=== PATIENT | female | born 1960 | race Caucasian/White ===

== ENCOUNTER 2017-10-10 12:31 | Emergency (ER) | payer BC ==
[~2017-10-10] VITALS: Ht 157.5 cm; Wt 104.3 kg
[~2017-10-10 12:31] MED LIST: ALLEGRA180 MG PO; ASPIRIN81 M1 PO; B COMPLEX WITH1 EACH; BENTYL10 MG PO; BYSTOLIC5 MG PO; CARAFATE1 GM PO; CENTRUM TABLET1 EACH PO; FISH OIL 1,4001 EACH; HYDROCHLOROTHIA25 MG; HYDROCHLOROTHIA25 MG PO; KEFLEX500 MG PO; LEVOTHYROXINE50 MCG PO; LEXAPRO10 MG PO; MVI; PANTOPRAZOLE SO40 MG PO; PROAIR HFA INH8.5 GM; REPREXAIN 5-201 EACH PO; REQUIP5 MG PO; ZANTAC 7575 MG PO; ZOCOR20 MG PO
[2017-10-10 13:41] LABS: BASOPHILS # (AUTO) 0.1 (0.0-0.1); BASOPHILS % 0.7 % (0.0-1.0); EOSINOPHILS # (AUTO) 0.2 (0.0-0.4); EOSINOPHILS % 1.8 % (0.0-6.0); HEMATOCRIT 40.2 % (34.2-44.1); HEMOGLOBIN 13.7 g/dL (12.0-16.0); LYMPHOCYTES # (AUTO) 4.8 (1.0-3.2); LYMPHOCYTES % 41.2 % (18.0-39.1); MEAN CORPUSCULAR HEMOGLOBIN 29.7 pg (28-32); MEAN CORPUSCULAR HGB CONC 34.1 g/dL (31-35); MEAN CORPUSCULAR VOLUME 87.2 fL (81-99); MONOCYTES # (AUTO) 0.7 (0.2-0.8); MONOCYTES % 6.1 % (4.4-11.3); NEUTROPHILS # (AUTO) 5.7 (2.1-6.9); NEUTROPHILS % 49.5 % (38.7-80.0); PLATELET COUNT 378 x10e3/uL (140-360); RED BLOOD COUNT 4.61 x10e6/uL (3.6-5.1); RED CELL DISTRIBUTION WIDTH 12.7 % (11.7-14.4)
[2017-10-10 13:53] LABS: ALANINE AMINOTRANSFERASE 26 IU/L (0-55); ALBUMIN 3.9 g/dL (3.5-5.0); ALBUMIN/GLOBULIN RATIO 0.9 (0.8-2.0); ALKALINE PHOSPHATASE 93 IU/L (40-150); AMYLASE 28 U/L (25-125); ANION GAP 13.2 mmol/L (8-16); BLOOD UREA NITROGEN 11 mg/dL (7-26); BUN/CREATININE RATIO 14 (6-25); CALCIUM 9.1 mg/dL (8.4-10.2); CARBON DIOXIDE 31 mmol/L (22-29); CHLORIDE 101 mmol/L (98-107); CREATININE, SERUM 0.79 mg/dL (0.57-1.11); EST GLOMERULAR FILTRATION RATE > 60 ML/MIN (60-); GLUCOSE 97 mg/dL (74-118); LIPASE 14 U/L (8-78); POTASSIUM 3.2 mmol/L (3.5-5.1); SODIUM 142 mmol/L (136-145)
[2017-10-10 15:44] LABS: BILIRUBIN,URINE NEGATIVE (NEGATIVE); CLARITY,URINE HAZY (CLEAR); COLOR,URINE YELLOW (YELLOW); KETONES,URINE NEGATIVE (NEGATIVE); LEUKOCYTE ESTERASE ,URINE 2+ (NEGATIVE); NITRITE,URINE NEGATIVE (NEGATIVE); PROTEIN,URINE DIPSTICK NEGATIVE (NEGATIVE); URINE UROBILINOGEN 0.2 mg/dL (0.2 - 1)
--- NOTE | 2017-10-10 16:05 | Diagnostic Imaging Report ---
PROCEDURE: CT ABDOMEN AND PELVIS WITH CONTRAST TECHNIQUE: The abdomen and pelvis were scanned utilizing a multidetector helical scanner from the diaphragm to the lesser trochanter after the IV administration of 100cc of Isovue 370 and the oral administration of water. Coronal and sagittal multiplanar reformations were obtained. COMPARISON: CT abdomen and pelvis 10/25/2012. INDICATIONS: ABD PAIN FINDINGS: LOWER THORAX: Normal. HEPATOBILIARY: Diffuse hepatic steatosis. No focal hepatic lesions. No biliary ductal dilatation. Right upper quadrant cholecystectomy clips. SPLEEN: No splenomegaly. PANCREAS: No focal masses or ductal dilatation. ADRENALS: No adrenal nodules. KIDNEYS/URETERS: No hydronephrosis, stones, or solid mass lesions. PELVIC ORGANS/BLADDER: 2.6 x 4.2 cm partially septated cystic structure the left ovary/adnexa (series 3 image 68) is decreased in size compared to 10/25/2012. This likely represents a left hydrosalpinx. Right ovary is unremarkable. PERITONEUM / RETROPERITONEUM: No free air or fluid. LYMPH NODES: No lymphadenopathy. VESSELS: Moderate atherosclerotic calcifications of the origins of the SMA and celiac axis. GI TRACT: No distention or wall thickening. Scattered colonic diverticula without evidence of diverticulitis. Duodenal diverticulum. Appendix is not visualized. BONES AND SOFT TISSUES: Unremarkable. IMPRESSION: 1. Diffuse hepatic steatosis. 2. No acute abnormalities identified in the abdomen or pelvis. Dictated by: Link Gunn M.D. on 10/10/2017 at 16:13 Electronically approved by: Link Gunn M.D. on 10/10/2017 at 16:13
[2017-10-10 16:40] LABS: EPITHELIAL CELLS,URINE FEW /LPF
[2017-10-10] MEDS ORDERED: KETOROLAC TROMETHAMINE 30 MG/ML VIAL IV STA (18:26)
[2017-10-10] MEDS ORDERED: DICYCLOMINE HCL 20 MG TAB PO ONE (18:30)
[2017-10-10] MEDS ORDERED: FENTANYL CITRATE/PF 100MCG/2 ML INJ IV ONE (18:30)
[2017-10-10] MEDS ORDERED: SODIUM CHLORIDE 0.9% 50ML 50 ML ONE (19:22)
[2017-10-10] MEDS ORDERED: IOPAMIDOL 370 MG/ML 200 ML INFUS..BTL INJ ONE (19:22)
[2017-10-10 20:24] VITALS: BP 145/68
== END 2017-10-10 20:25 | disposition home or self-care (01) ==
LOC: ER 12:31
DX: R10.33 Periumbilical pain (principal); N30.90 Cystitis, unspecified without hematuria; I10 Essential (primary) hypertension; K21.9 Gastro-esophageal reflux disease without esophagitis; Z87.19 Personal history of other diseases of the digestive system
CPT/HCPCS: 36415; 74177; 80053; 81001; 82150; 83690; 85025; 87086; 93005; 99284; J1885; Q9967

== ENCOUNTER 2017-11-29 16:10 | Emergency (ER) | payer BC ==
[~2017-11-29] VITALS: Ht 157.5 cm; Wt 111.1 kg
--- OUTSIDE RECORDS SUMMARY | 2017-11-29 16:14 | XMS REPORT ---
Author Author [facility] Address Unknown Phone Unavailable Care Team Providers [facility] [place] Guide Name Role Phone TOÑA CATALAN Unavailable Unavailable Problems This patient has no known problems. Allergies, Adverse Reactions, Alerts This patient has no known allergies or adverse reactions. Medications This patient has no known medications. Results Test Description Test Time Test Comments Text Results Atomic Results Result Comments CT ABDOMEN/PELVIS W [place] [address] Patient Name: ELLY LOCKWOOD MR #: [id number] : 1960 Age/Sex: 57/F Req #: [id number] Adm Physician: Ordered by: TOÑA CATALAN MD Report #: [id number] Location: ER Room/Bed: Procedure: [id number] CT/CT ABDOMEN/PELVIS W Exam Date: 10/10/17 Exam Time: 1450 REPORT STATUS: Signed PROCEDURE: CT ABDOMEN AND PELVIS WITH CONTRAST TECHNIQUE: The abdomen and pelvis were scanned utilizing a multidetector helical scanner from the diaphragm to the lesser trochanter after the IV administration of 100cc of Isovue 370 and the oral administration of water. Coronal and sagittal multiplanar reformations were obtained. COMPARISON: CT abdomen and pelvis 10/25/2012. INDICATIONS: ABD PAIN FINDINGS: LOWER THORAX: Normal. HEPATOBILIARY: Diffuse hepatic steatosis. No focal hepatic lesions. No biliary ductal dilatation. Right upper quadrant cholecystectomy clips. SPLEEN : No splenomegaly. PANCREAS: No focal masses or ductal dilatation. ADRENALS: No adrenal nodules. KIDNEYS/URETERS: No hydronephrosis, stones, or solid mass lesions. PELVIC ORGANS/BLADDER: 2.6 x 4.2 cm partially septated cystic structure the left ovary/adnexa (series 3 image 68) is decreased in size compared to 10/25/2012. This likely represents a left hydrosalpinx. Right ovary is unremarkable. PERITONEUM / RETROPERITONEUM: No free air or fluid. LYMPH NODES: No lymphadenopathy. VESSELS: Moderate atherosclerotic calcifications of the origins of the SMA and celiac axis. GI TRACT: No distention or wall thickening. Scattered colonic diverticula without evidence of diverticulitis. Duodenal diverticulum. Appendix is not visualized. BONES AND SOFT TISSUES: Unremarkable. IMPRESSION: 1. Diffuse hepatic steatosis. 2. No acute abnormalities identified in the abdomen or pelvis. Dictated by: Russel Gunn M.D. on 2017 at 16:13 Electronically approved by: Russel Gunn M.D. on 10/10/2017 at 16:13 Dictated By: RUSSEL GUNN MD [id number] Transcribed By: VIDYA on 10/10/17 1613 COPY TO: TOÑA CATALAN MD
[2017-11-29] MEDS ORDERED: ONDANSETRON HCL INJ 2 MG/ML VIAL IV STA (18:17)
[2017-11-29] MEDS ORDERED: SODIUM CHLORIDE 0.9% 1000ML 1,000 ML IV STA (18:17)
[2017-11-29] MEDS ORDERED: DIATRIZOATE MEGL/DIATRIZOA SOD 30 ML BTL PO ONE (18:27)
[2017-11-29 18:28] LABS: BASOPHILS # (AUTO) 0.1 (0.0-0.1); BASOPHILS % 0.6 % (0.0-1.0); EOSINOPHILS # (AUTO) 0.3 (0.0-0.4); EOSINOPHILS % 2.1 % (0.0-6.0); HEMATOCRIT 40.6 % (34.2-44.1); HEMOGLOBIN 13.7 g/dL (12.0-16.0); LYMPHOCYTES # (AUTO) 4.2 (1.0-3.2); LYMPHOCYTES % 33.8 % (18.0-39.1); MEAN CORPUSCULAR HEMOGLOBIN 29.8 pg (28-32); MEAN CORPUSCULAR HGB CONC 33.7 g/dL (31-35); MEAN CORPUSCULAR VOLUME 88.5 fL (81-99); MONOCYTES # (AUTO) 0.7 (0.2-0.8); MONOCYTES % 5.7 % (4.4-11.3); NEUTROPHILS # (AUTO) 7.1 (2.1-6.9); NEUTROPHILS % 57.2 % (38.7-80.0); PLATELET COUNT 266 x10e3/uL (140-360); RED BLOOD COUNT 4.59 x10e6/uL (3.6-5.1); RED CELL DISTRIBUTION WIDTH 12.8 % (11.7-14.4)
[2017-11-29 18:43] LABS: ALANINE AMINOTRANSFERASE 22 IU/L (0-55); ALBUMIN 3.9 g/dL (3.5-5.0); ALKALINE PHOSPHATASE 103 IU/L (40-150); AMYLASE 27 U/L (25-125); ANION GAP 17.3 mmol/L (8-16); BLOOD UREA NITROGEN 12 mg/dL (7-26); BUN/CREATININE RATIO 16 (6-25); CALCIUM 9.6 mg/dL (8.4-10.2); CARBON DIOXIDE 28 mmol/L (22-29); CHLORIDE 100 mmol/L (98-107); CREATININE, SERUM 0.77 mg/dL (0.57-1.11); EST GLOMERULAR FILTRATION RATE > 60 ML/MIN (60-); GLUCOSE 109 mg/dL (74-118); LIPASE 13 U/L (8-78); POTASSIUM 3.3 mmol/L (3.5-5.1); SODIUM 142 mmol/L (136-145)
--- NOTE | 2017-11-29 19:49 | Diagnostic Imaging Report ---
EXAM: CT Abdomen and Pelvis WITH contrast INDICATION: \S\Nausea/vomiting, concern for obstruction \[id number] \S\1900 COMPARISON: CT dated 10/10/2017 TECHNIQUE: Abdomen and pelvis were scanned utilizing a multidetector helical scanner from the lung base to the pubic symphysis after administration of IV contrast. Coronal and sagittal reformations were obtained. Routine protocol was performed. Scan was performed when during portal venous phase. IV CONTRAST: 100 mL of Isovue 370 ORAL CONTRAST: Gastroview COMPLICATIONS: None RADIATION DOSE: Total DLP: 845 mGy*cm Estimated effective dose: (DLP x 0.015 x size factor) mSv CTDIvol has been reviewed. It is below the limits set by the Radiation Protocol Committee (RPC). FINDINGS: LINES and TUBES: None. LOWER THORAX: Unremarkable HEPATOBILIARY: Hepatic steatosis. No focal hepatic lesions. No biliary ductal dilation. GALLBLADDER: Cholecystectomy. SPLEEN: No splenomegaly. PANCREAS: No focal masses or ductal dilatation. ADRENALS: No adrenal nodules KIDNEYS/URETERS: Kidneys enhance symmetrically. No hydronephrosis. No cystic or solid mass lesions. No stones. GI TRACT: No abnormal distention, wall thickening, or evidence of bowel obstruction. There are diverticula within the colon without evidence of diverticulitis. Appendix is not clearly visualized. PELVIC ORGANS/BLADDER: Unremarkable. 2 x 1 cm left para ovarian cyst (coronal image 68). LYMPH NODES: No lymphadenopathy. Increased number of subcentimeter right lower quadrant mesenteric lymph nodes. VESSELS: Unremarkable. PERITONEUM / RETROPERITONEUM: No free air or fluid. BONES: Unremarkable. SOFT TISSUES: Unremarkable. IMPRESSION: 1. No evidence of acute inflammatory process in the abdomen/pelvis. 2. Scattered colonic diverticula without evidence of diverticulitis. 3. Appendix is not clearly visualized. No signs of appendicitis in the right lower quadrant. Increased number of subcentimeter right lower quadrant mesenteric lymph nodes, could represent mild mesenteric adenitis in the appropriate clinical setting. 4. Hepatic steatosis. 5. No evidence of bowel obstruction. Signed by: Dr. Sreekatnh Camacho MD on 11/29/2017 7:46 PM
[2017-11-29 20:20] LABS: BILIRUBIN,URINE NEGATIVE (NEGATIVE); COLOR,URINE YELLOW (YELLOW); KETONES,URINE NEGATIVE (NEGATIVE); LEUKOCYTE ESTERASE ,URINE 1+ (NEGATIVE); NITRITE,URINE NEGATIVE (NEGATIVE); PROTEIN,URINE DIPSTICK NEGATIVE (NEGATIVE); URINE UROBILINOGEN 0.2 mg/dL (0.2 - 1)
[2017-11-29 20:21] LABS: CLARITY,URINE SL CLOUDY (CLEAR)
[2017-11-29 20:36] LABS: BACTERIA,URINE MANY /HPF; EPITHELIAL CELLS,URINE MODERATE /LPF; TRANSITIONAL EPI CELLS,URINE FEW
[2017-11-29] MEDS ORDERED: KETOROLAC TROMETHAMINE 30 MG/ML VIAL IV STA (21:38)
[2017-11-29] MEDS ORDERED: KETOROLAC TROMETHAMINE 30 MG/ML VIAL ONE (21:44)
[2017-11-29] MEDS ORDERED: SODIUM CHLORIDE 0.9% 1000ML 1,000 ML ONE (21:51)
[2017-11-29] MEDS ORDERED: SODIUM CHLORIDE 0.9% 50ML 50 ML ONE (22:09)
[2017-11-29] MEDS ORDERED: IOPAMIDOL 370 MG/ML 200 ML INFUS..BTL INJ ONE (22:10)
[2017-11-29 22:30] LABS: BILIRUBIN,URINE NEGATIVE (NEGATIVE); CLARITY,URINE CLEAR (CLEAR); COLOR,URINE YELLOW (YELLOW); KETONES,URINE NEGATIVE (NEGATIVE); LEUKOCYTE ESTERASE ,URINE NEGATIVE (NEGATIVE); NITRITE,URINE NEGATIVE (NEGATIVE); PROTEIN,URINE DIPSTICK NEGATIVE (NEGATIVE); URINE UROBILINOGEN 0.2 mg/dL (0.2 - 1)
[2017-11-29 22:43] LABS: BACTERIA,URINE MODERATE /HPF; EPITHELIAL CELLS,URINE RARE /LPF; WBC,URINE (MAN) 0-5 /HPF (0-5)
== END 2017-11-29 22:41 | disposition home or self-care (01) ==
LOC: ER 16:10
DX: N30.90 Cystitis, unspecified without hematuria (principal); I10 Essential (primary) hypertension; N83.292 Other ovarian cyst, left side
CPT/HCPCS: 36415; 74177; 80053; 81001; 82150; 83690; 85025; 87086; 99284; J1885; J7030; Q9967

== ENCOUNTER → 2018-10-25 | Day surgery (SDC) | payer BC ==
[2018-10-23 10:02] LABS: BASOPHILS # (AUTO) 0.1 (0.0-0.1); BASOPHILS % 0.7 % (0.0-1.0); EOSINOPHILS # (AUTO) 0.2 (0.0-0.4); EOSINOPHILS % 2.2 % (0.0-6.0); HEMATOCRIT 37.9 % (34.2-44.1); HEMOGLOBIN 12.2 g/dL (12.0-16.0); LYMPHOCYTES # (AUTO) 3.5 (1.0-3.2); LYMPHOCYTES % 37.4 % (18.0-39.1); MEAN CORPUSCULAR HEMOGLOBIN 29.3 pg (28-32); MEAN CORPUSCULAR HGB CONC 32.2 g/dL (31-35); MEAN CORPUSCULAR VOLUME 90.9 fL (81-99); MONOCYTES # (AUTO) 0.6 (0.2-0.8); MONOCYTES % 6.6 % (4.4-11.3); NEUTROPHILS % 52.8 % (38.7-80.0); PLATELET COUNT 306 x10e3/uL (140-360); RED BLOOD COUNT 4.17 x10e6/uL (3.6-5.1); RED CELL DISTRIBUTION WIDTH 12.8 % (11.7-14.4)
[2018-10-23 10:29] LABS: ANION GAP 14.3 mmol/L (8-16); BLOOD UREA NITROGEN 10 mg/dL (7-26); BUN/CREATININE RATIO 14 (6-25); CALCIUM 9.5 mg/dL (8.4-10.2); CARBON DIOXIDE 31 mmol/L (22-29); CHLORIDE 102 mmol/L (98-107); CREATININE, SERUM 0.73 mg/dL (0.57-1.11); EST GLOMERULAR FILTRATION RATE > 60 ML/MIN (60-); GLUCOSE 109 mg/dL (74-118); POTASSIUM 3.3 mmol/L (3.5-5.1); SODIUM 144 mmol/L (136-145)
[~2018-10-25] MED LIST changes: +BUPIVACAINE 0.25% 30ML SDV INJ ONE; +CEFAZOLIN SOD 2 GM/D5W 50ML 50 ML IV ONE; +CRESTOR10 MG; +DESFLURANE 240 ML BTL INH ONE; +DEXAMETHASONE SOD PHOS INJ 4 MG/ML VIAL ONE; +FENTANYL CITRATE/PF 100MCG/2 ML INJ ONE; +KETOROLAC TROMETHAMINE 30 MG/ML VIAL ONE; +LIDOCAINE HCL 2% LOCAL INJ 5 ML SDV VIAL INJ ONE; +LORAZEPAM1 MG PO; +MIDAZOLAM HCL 2 MG/2 ML VIAL ONE; +MORPHINE SULFATE INJ 4 MG/ML INJ 1ML ONE; +MULTIVITAMINS1 EAC7; +NEOSTIGMINE 1 MG/ML 10ML VIAL ONE; +ONDANSETRON HCL INJ 2MG/ML 2ML 2 MG/ML VIAL ONE; +PRO AIR INH; +PROBIOTIC & AC1 EACH; +PROPOFOL IV EMULSION 10 MG/ML 20 ML VIAL ONE; +[UNRECOGNIZED DRUG - OTHER]
--- OUTSIDE RECORDS SUMMARY | 2018-10-25 05:44 | XMS REPORT | Continuity of Care Document ---
Author Author [facility] Interface Address Unknown Phone Unavailable Problems Problem Status Onset Date Classification Date Reported Comments Source N95.0 - POSTMENOPAUSAL BLEEDING Active 05/24/2018 [facility] [place] POST MENAPUASAL BLEEDING, N95.0 Active 05/24/2018 [facility] Z12.31 - ENCNTR SCREEN MAMMOGRAM FOR MA Active 01/02/2017 [facility] [place] Final: Deformity of Orbit Due to Trauma or Surgery 12/04/2013 12/17/2013 [facility] [place] 627.1 - POSTMENOPAUSAL Active 07/23/2013 [facility] [place] Abdominal pain Active Problem 11/30/2017 [facility] UTI Active Problem 11/30/2017 [facility] Medications Medication Details Route Status Patient Instructions Ordering Provider Order Date Source Albuterol Sulfate (Proair Hfa Inhaler*) 8.5 Gm Inh, Active 01/12/2017 [facility] Escitalopram Oxalate (Lexapro) 10 Mg Tablet, 10 Mg Oral Daily Active 01/12/2017 [facility] Fa/Mv,Ca,Iron,Min/Lycopene/Lut (Centrum Tablet) 1 Each Tablet, 1 Tab Oral Daily Active 01/12/2017 [facility] Fexofenadine Hcl (Symone) 180 Mg Tablet, 180 Mg Oral Daily Active 01/12/2017 [facility] Hydrochlorothiazide 25 Mg Tablet, 25 Mg Oral Daily Active 01/12/2017 [facility] Hydrocodone/Ibuprofen (Reprexain 5-200 Mg Tablet) 1 Each Tablet, 1 Tab Oral Every 6 Hours as needed Active 01/12/2017 [facility] Zap-3/Dha/Epa/Fish Oil (Fish Oil 1,400 Mg Softgel) 1 Each Capsule., Active 01/12/2017 [facility] Simvastatin (Zocor) 20 Mg Tablet, 20 Mg Oral Daily Active 01/12/2017 [facility] Aspirin 81 Mg Tablet, 81 Mg Oral Daily Active 01/28/2013 [facility] Ranitidine Hcl (Zantac 75) 75 Mg Tablet, 300 Mg Oral Bedtime Active 01/28/2013 [facility] Sucralfate (Carafate) 1 Gm Tablet, 1 Gm Oral Four Times Daily Active 01/28/2013 [facility] Vitamin B Complex & Vit C No.3 (B Complex With Vitamin C) 1 Each Capsule, Active 01/28/2013 [facility] Cephalexin Monohydrate (Keflex) 500 Mg Capsule, 500 Mg Oral Three Times A Day Active 10/26/2012 [facility] Hydrochlorothiazide 25 Mg Tablet, 25 Mg Oral Daily Active 10/26/2012 [facility] Mvi , Active 10/26/2012 [facility] Dicyclomine Hcl (Bentyl) 10 Mg Capsule Four Times Daily Active [facility] Hydrochlorothiazide 25 Mg Tablet Daily Active [facility] Levothyroxine Sodium 50 Mcg Tablet Daily Active [facility] Nebivolol Hcl (Bystolic) 5 Mg Tablet Daily Active [facility] Pantoprazole Sodium (Protonix) 40 Mg Tablet.dr Daily Active [facility] Ropinirole Hcl (Requip) 5 Mg Tablet Daily Active [facility] Allergies, Adverse Reactions, Alerts Substance Category Reaction Severity Reaction type Status Date Reported Comments Source Sulfa (Sulfonamide Antibiotics) Mild Allergy to Substance Active 11/29/2017 [facility] Adhesive Unknown Allergy to Substance Active 11/29/2017 [facility] Hydromorphone Unknown Allergy to Substance Active 11/29/2017 [facility] Metoclopramide Mild Allergy to Substance Active 11/29/2017 [facility] Valacyclovir Unknown Allergy to Substance Active 11/29/[address] [facility] Immunizations Immunization Date Given Site Status Last Updated Comments Source Results Order Name Results Value Reference Range Date Interpretation Comments Source Breast Mammo Scrn ROSS incl CAD MA Breast Mammo Scrn ROSS incl CAD MA BILATERAL DIGITAL SCREENING MAMMOGRAM WITH CAD: 06/03/2018 CLINICAL: Routine/Screening. Current study was evaluated with a Computer Aided Detection (CAD) system. COMPARISON:Comparison is made to exams dated: 01/29/2017 mammogram, 05/17/2015 mammogram - [facility], 05/30/2013 mammogram, 04/26/2011 mammogram, 04/08/2010 mammogram, and 04/05/2009 mammogram - [facility] Out[facility] Imaging Department. TECHNIQUE: Mammographic views were obtained using digital acquisition. Current study was also evaluated with a Computer Aided Detection (CAD) system. FINDINGS: There are scattered fibroglandular densities in both breasts. There is a benign appearing intramammary node in the left breast. There also are benign appearing masses in the right breast. No significant masses, calcifications, or other findings are seen in either breast. There has been no significant interval change. IMPRESSION: BENIGN RECOMMENDATION:There is no mammographic evidence of malignancy. A 1 year screening mammogram is recommended.(06/04/2019) This exam was interpreted at [id number] for BLAKE Burnett 15. Professional services are provided by the [facility] of Diagnostic Imaging. Cullen Swanson M.D. cm/penrad:06/03/2018 08:43:18 [employer] Mechanic(s): RT Karli(R)(M), [facility] letter sent: BI-RADS 1/2 Mammogram BI-RADS: 2 Benign 06/03/2018 - - Read by: Brandt Gomez MD Dictated Date/time: 06/03/18 08:43 Electronically Signed by: Brandt Gomez MD 06/03/18 08:43 FINAL REPORT [facility] Pelvis w Pelvis Transvaginal US Pelvis w Pelvis Transvaginal US Exam: Pelvic ultrasound. Reason for Exam: N95.0 Postmenopausal bleeding - Comparison Exam: Pelvic ultrasound 07/24/2013 Discussion: Multiple axial and sagittal images of the pelvis were obtained transabdominally and transvaginally. The uterus measures 8.1 cm in length. It is of normal echogenicity without focal masses. The endometrial stripe measures 0.9 cm, and is within normal limits. The right ovary measures 2.3 x 1.5 x 1.2 cm. It is of normal echogenicity without focal masses. Doppler and waveform evaluations of the right ovary are unremarkable. Left ovary cannot be distinctly seen. Note is made of a cyst within the left adnexa measuring 2.3 x 1.7 x 0.6 cm. It is suggestive of a paraovarian cyst. No free fluid seen within the pelvic cul-de-sac. The bladder is unremarkable in appearance. Impression: 1. Endometrium and intrauterine cavity are unremarkable. 05/27/2018 - - Read by: Kingston Olsen MD Dictated Date/time: 05/27/18 15:40 Electronically Signed by: Kingston Olsen MD 05/27/18 15:49 FINAL REPORT [facility] [place] Specific gravity of Urine by Test strip Specific gravity of Urine by Test strip 1.015 1.010 - 1.025 11/29/2017 [facility] Urine clarity Urine clarity CLEAR CLEAR 11/29/2017 [facility] Urine color determination Urine color determination YELLOW YELLOW 11/29/2017 [facility] Urine erythrocytes detection Urine erythrocytes detection NEGATIVE NEGATIVE 11/29/2017 [facility] Urine glucose detection Urine glucose detection NEGATIVE NEGATIVE 11/29/2017 [facility] Urine ketones detection by automated test strip Urine ketones detection by automated test strip NEGATIVE NEGATIVE 11/29/2017 [facility] Urine leukocyte esterase detection by dipstick Urine leukocyte esterase detection by dipstick NEGATIVE NEGATIVE 11/29/2017 [facility] Urine nitrite detection Urine nitrite detection NEGATIVE NEGATIVE 11/29/2017 [facility] Urine pH measurement by automated test strip Urine pH measurement by automated test strip 5 5 - 7 11/29/2017 [facility] Urine protein measurement by test strip (mass/volume) Urine protein measurement by test strip (mass/volume) NEGATIVE NEGATIVE 11/29/2017 [facility] Urine total bilirubin measurement (mass/volume) Urine total bilirubin measurement (mass/volume) NEGATIVE NEGATIVE 11/29/2017 [facility] Urine urobilinogen measurement by test strip (mass/volume) Urine urobilinogen measurement by test strip (mass/volume) 0.2 0.2 - 1 11/29/2017 [facility] Automated blood basophil count (count/volume) Automated blood basophil count (count/volume) 0.1 0.0 - 0.1 11/29/2017 [facility] Automated blood basophil count as percentage of total leukocytes Automated blood basophil count as percentage of total leukocytes 0.6 0.0 - 1.0 11/29/2017 [facility] Automated blood eosinophil count Automated blood eosinophil count 0.3 0.0 - 0.4 11/29/2017 [facility] Automated blood eosinophil count as percentage of total leukocytes Automated blood eosinophil count as percentage of total leukocytes 2.1 0.0 - 6.0 11/29/2017 [facility] Automated blood hematocrit (volume fraction) Automated blood hematocrit (volume fraction) 40.6 34.2 - 44.1 11/29/2017 [facility] Automated blood lymphocyte count as percentage ot total leukocytes Automated blood lymphocyte count as percentage ot total leukocytes 33.8 18.0 - 39.1 11/29/2017 [facility] Automated blood monocyte count as percentage of total leukocytes Automated blood monocyte count as percentage of total leukocytes 5.7 4.4 - 11.3 11/29/2017 [facility] Automated blood neutrophil count Automated blood neutrophil count 7.1 2.1 - 6.9 11/29/2017 [facility] Automated blood platelet count (count/volume) Automated blood platelet count (count/volume) 266 140 - 360 11/29/2017 [facility] Automated blood segmented neutrophil count as percentage of total leukocytes Automated blood segmented neutrophil count as percentage of total leukocytes 57.2 38.7 - 80.0 11/29/2017 [facility] Automated erythrocyte mean corpuscular hemoglobin (mass per erythrocyte) Automated erythrocyte mean corpuscular hemoglobin (mass per erythrocyte) 29.8 28 - 32 11/29/2017 [facility] Automated erythrocyte mean corpuscular hemoglobin concentration measurement (mass/volume) Automated erythrocyte mean corpuscular hemoglobin concentration measurement (mass/volume) 33.7 31 - 35 11/29/2017 [facility] Automated erythrocyte mean corpuscular volume Automated erythrocyte mean corpuscular volume 88.5 81 - 99 11/29/2017 [facility] Blood erythrocytes automated count (number/volume) Blood erythrocytes automated count (number/volume) 4.59 3.6 - 5.1 11/29/2017 [facility] Blood hemoglobin measurement (moles/volume) Blood hemoglobin measurement (moles/volume) 13.7 12.0 - 16.0 11/29/2017 [facility] Blood leukocytes automated count (number/volume) Blood leukocytes automated count (number/volume) 12.35 4.8 - 10.8 11/29/2017 [facility] Blood lymphocytes count (number/volume) Blood lymphocytes count (number/volume) 4.2 1.0 - 3.2 11/29/2017 [facility] Blood monocytes automated count (number/volume) Blood monocytes automated count (number/volume) 0.7 0.2 - 0.8 11/29/2017 [facility] Estimated glomerular filtration rate (GFR) determination Estimated glomerular filtration rate (GFR) determination null 60 11/29/2017 [facility] Glucose measurement Glucose measurement 109 74 - 118 11/29/2017 [facility] Plasma globulin measurement (mass/volume) Plasma globulin measurement (mass/volume) 4.0 2.3 - 3.5 11/29/2017 [facility] Serum or plasma alanine aminotransferase measurement (enzymatic activity/volume) Serum or plasma alanine aminotransferase measurement (enzymatic activity/volume) 22 0 - 55 11/29/2017 [facility] Serum or plasma albumin measurement (mass/volume) Serum or plasma albumin measurement (mass/volume) 3.9 3.5 - 5.0 11/29/2017 [facility] Serum or plasma albumin/globulin mass ratio Serum or plasma albumin/globulin mass ratio 1.0 0.8 - 2.0 11/29/2017 [facility] Serum or plasma alkaline phosphatase measurement (enzymatic activity/volume) Serum or plasma alkaline phosphatase measurement (enzymatic activity/volume) 103 40 - 150 11/29/2017 [facility] Serum or plasma amylase measurement (enzymatic activity/volume) Serum or plasma amylase measurement (enzymatic activity/volume) 27 25 - 125 11/29/2017 [facility] Serum or plasma anion gap Serum or plasma anion gap 17.3 8 - 16 11/29/2017 [facility] Serum or plasma calcium measurement (mass/volume) Serum or plasma calcium measurement (mass/volume) 9.6 8.4 - 10.2 11/29/2017 [facility] Serum or plasma carbon dioxide, total measurement (moles/volume) Serum or plasma carbon dioxide, total measurement (moles/volume) 28 22 - 29 11/29/2017 [facility] Serum or plasma chloride measurement (moles/volume) Serum or plasma chloride measurement (moles/volume) 100 98 - 107 11/29/2017 [facility] Serum or plasma creatinine measurement (mass/volume) Serum or plasma creatinine measurement (mass/volume) 0.77 0.57 - 1.11 11/29/2017 [facility] Serum or plasma lipase measurement (enzymatic activity/volume) Serum or plasma lipase measurement (enzymatic activity/volume) 13 8 - 78 11/29/2017 [facility] Serum or plasma potassium measurement (moles/volume) Serum or plasma potassium measurement (moles/volume) 3.3 3.5 - 5.1 11/29/2017 [facility] Serum or plasma protein measurement (mass/volume) Serum or plasma protein measurement (mass/volume) 7.9 6.5 - 8.1 11/29/2017 [facility] Serum or plasma sodium measurement (moles/volume) Serum or plasma sodium measurement (moles/volume) 142 136 - 145 11/29/2017 [facility] Serum or plasma total bilirubin measurement (mass/volume) Serum or plasma total bilirubin measurement (mass/volume) 0.4 0.2 - 1.2 11/29/2017 [facility] Serum or plasma urea nitrogen measurement (mass/volume) Serum or plasma urea nitrogen measurement (mass/volume) 12 7 - 26 11/29/2017 [facility] Serum or plasma urea nitrogen/creatinine mass ratio Serum or plasma urea nitrogen/creatinine mass ratio 16 6 - 25 11/29/2017 [facility] Red Cell Distribution Width 12.8 11.7 - 14.4 11/29/2017 [facility] IM GRANULOCYTES % 0.6 0.0 - 1.0 11/29/2017 [facility] Absolute Immature Granulocyte (auto 0.07 0 - 0.1 11/29/2017 [facility] Aspartate Amino Transf (AST/SGOT) 23 5 - 34 11/29/2017 [facility] Automated urine sediment leukocyte count by microscopy (number/high power field) Automated urine sediment leukocyte count by microscopy (number/high power field) null 0 - 5 11/29/2017 [facility] Bacteria detection in urine sediment by light microscopy Bacteria detection in urine sediment by light microscopy MANY NONE 11/29/2017 [facility] Epithelial cells detection in urine sediment by light microscopy Epithelial cells detection in urine sediment by light microscopy MODERATE NONE 11/29/2017 [facility] Erythrocytes detection in urine sediment by light microscopy Erythrocytes detection in urine sediment by light microscopy NONE 0 - 5 11/29/2017 [facility] Transitional cells detection in urine sediment by light microscopy Transitional cells detection in urine sediment by light microscopy FEW NONE 11/29/2017 [facility] Breast Mammo Scrn ROSS incl CAD MA Breast Mammo Scrn ROSS incl CAD MA - BREAST MAMMO SCRN ROSS INCL CAD MA BILATERAL DIGITAL SCREENING MAMMOGRAM WITH CAD: 01/29/2017 CLINICAL: Routine. Current study was evaluated with a Computer Aided Detection (CAD) system. Comparison is made to exams dated: 05/17/2015 mammogram - [facility], 05/30/2013 mammogram, 04/26/2011 mammogram, 04/08/2010 mammogram, 04/05/2009 mammogram and 08/28/2007 mammogram - [facility] Outpatient Imaging Department. There are scattered fibroglandular densities in both breasts. There are benign appearing masses in the right breast. There also is a benign appearing intramammary node in the left breast. No significant masses, calcifications, or other findings are seen in either breast. There has been no significant interval change. IMPRESSION: BENIGN There is no mammographic evidence of malignancy. A 1 year screening mammogram is recommended. Professional services are provided by the [facility] Diagnostic Imaging. Pedro Luis Elder M.D. rsl/penrad:01/31/2017 08:54:47 [employer] Mechan[employer]: Stephanie Manzo RT(R)(M), [facility] This exam was dictated and interpreted by [id number] for BENOIT Bobby. letter sent: Bilateral Benign Mammogram BI-RADS: 2 Benign 01/29/2017 - - Read by: Pedro Luis Elder MD Dictated Date/time: 01/31/17 08:54 Electronically Signed by: Pedro Luis Elder MD 01/31/17 08:54 FINAL REPORT [facility] Digital Mammo Screening [place] Digital Mammo Screening [place] - DIGITAL MAMMO SCREENING ROSS MA BILATERAL DIGITAL SCREENING MAMMOGRAM WITH CAD: 05/17/2015 CLINICAL: Annual Screening. Current study was evaluated with a Computer Aided Detection (CAD) system. Comparison is made to exams dated: 04/05/2009 mammogram, 04/08/2010 mammogram, 04/26/2011 mammogram and 05/30/2013 mammogram - [facility] Outpatient Imaging Department. There are scattered fibroglandular densities in both breasts. There is a benign mass in the right breast. There also is a benign intramammary node in the left breast. No significant masses, calcifications, or other findings are seen in either breast. There has been no significant interval change. IMPRESSION: BENIGN There is no mammographic evidence of malignancy. A 1 year screening mammogram is recommended. Nico Ring M.D. [facility]/penrad:05/17/2015 16:35:40 [employer]: Sherley Ferraro RT(R)(M), [facility] This exam was dictated and interpreted by [id number] for BENOIT Thomas. letter sent: Normal exam Mammogram BI-RADS: 2 Benign 05/17/2015 - - Read by: Nico Ring MD Dictated Date/time: 05/17/15 16:35 Electronically Signed by: Nico Ring MD 05/17/15 16:35 FINAL REPORT [facility] Orbit wo contrast CT Orbit wo contrast CT CT orbits without contrast 11/28/2013 Clinical: Trauma. Comparison: None available. Findings: The DLP is 694 mGy - cm. Axial and direct coronal CT images were obtained without intravenous contrast. Linear nondisplaced fracture of the right orbital roof is present. Right lamina papyracea medially displaced fracture is present, with partial encroachment of the left medial rectus muscle into the fracture defect. There is asymmetrical prominence of the left medial rectus muscle which may represent posttraumatic myositis. Focal anterior right orbital floor fracture is present, without entrapment of the right inferior extraocular muscle. The right maxillary sinus is well aerated. No additional fracture is seen. The bilateral optic globes appear unremarkable. No intraconal hematoma or soft tissue mass is seen. There is a small radiopaque foreign body within the right superior periorbital soft tissues. IMPRESSION: 1. Fractures involving the right orbital roof, right lamina papyracea, and right orbital floor as above. There is encroachment of the left medial rectus muscle into the fracture defect with probable posttraumatic myositis. 2. Small radiopaque foreign body within the right superior periorbital soft tissues. 11/28/2013 - - Read by: Ernst Joe Dictated Date/time: 11/28/13 16:50 Electronically Signed by: Ernst Joe MD 11/28/13 17:19 FINAL REPORT [facility] Pelvis with Pelvis Transvaginal US Pelvis with Pelvis Transvaginal US EXAM: Pelvis with Pelvis Transvaginal US HISTORY: PMB COMPARISON: 04/05/2009. TECHNIQUE: Grayscale, color Doppler and limited spectral Doppler imaging of the uterus and ovaries was obtained. FINDINGS: Uterus measures 8.7 x 5.9 by 5. centimeters and again demonstrates a retroverted appearance with heterogeneous myometrium. The endometrial stripe is thickened for a postmenopausal woman measuring 1.4 cm. The right ovary measures 2.4 x 1.2 x 1.7 cm and contains a small slightly complex cyst measuring less than a 1.0 x 0.6 x 0.7 cm. The left ovary measures 4.0 x 2.7 x 2.4 cm and contains a complex cystic area measuring 2.4 x 2.0 x 2.0 cm. There is a left paraovarian cyst which appears simple in appearance and has been seen on prior exams measuring approximately 2.7 x 2.2 x 2.5 cm, stable. There is no free fluid. IMPRESSION: 1. Thickened endometrial stripe in a postmenopausal woman with bleeding should be evaluated further with biopsy. 2. Complex left ovarian cyst. Short-term followup is recommended. 07/24/2013 - - Read by: Brandie Vila Dictated Date/time: 07/25/13 08:00 Electronically Signed by: Brandie Vila MD 07/25/13 08:18 FINAL REPORT [facility] [place] Vital Signs Vital Sign Value Date Comments Source Encounters Location Location Details Encounter Type Encounter Number Reason For Visit Attending Provider ADM Date DC Date Status Source OD [id number] 627.1 - POSTMENOPAUSAL DAMIRDANICA SUZ 07/24/2013 Active [facility] [place] [facility] [place] [facility] [id number] _[id number] Dain [place]vale 11/28/2013 11/29/2013 [facility] [place] [facility] [place] [facility] [id number] Damir Hanson 05/17/2015 05/18/2015 [facility] [place] [facility] [place] [facility] [id number] Damir Hanson 01/29/2017 01/30/2017 [facility] [place] Departed Emergency Room [id number] TOÑA CATALAN MD 10/10/2017 10/10/2017 [facility] Departed Emergency Room [id number] DAYA ALEJO MD 11/29/2017 11/29/2017 [facility] Procedures Procedure Code Date Perfomer Comments Source Computed tomography of abdomen and pelvis with contrast [id number] 11/29/[address] [facility] Computed tomography of abdomen and pelvis with contrast [id number] 10/10/[address] [facility]
--- OUTSIDE RECORDS SUMMARY | 2018-10-25 05:44 | XMS REPORT | Summary of Care ---
Author Author [facility] Outpatient Imaging - [place] Organization [facility] Outpatient Imaging [facility] Address Unknown Phone Unavailable Care Team Providers Care Mortar Carrier Name Role Phone Vahid Hanson PCP Encounter HQ Encntr_alichilango([facility]) [phone] Date(s): 05/17/15 - 05/17/15 [facility] Outpatient [address] [address] [phone] Discharge Disposition: Home Attending Physician: Vahid Hanson MD Vital Signs No data available for this section Problem List No data available for this section Allergies, Adverse Reactions, Alerts No data available for this section Medications No data available for this section Results No data available for this section Immunizations No data available for this section Procedures No data available for this section Social History No data available for this section Assessment and Plan No data available for this section
--- OUTSIDE RECORDS SUMMARY | 2018-10-25 05:44 | XMS REPORT | Summary of Care ---
Author Organization Unknown Address Unknown Phone Unavailable Care Team Providers Care Hotel Server Name Role Phone Vahid Hanson PCP Encounter Dates Location Diagnoses Discharge Providers Disposition 11/28/2013 [facility] Outpatient Imaging - Final: Home Dain Siddiqui NS - Uriah Deformity of 11/28/[address] [place] Due to [place], [place] [address]- , Trauma or [place] [facility] Reason for Visit 376.47 - ORBIT DEFORM D/ Problem List No data available for this section Allergies, Adverse Reactions, Alerts No data available for this section Medications No data available for this section Medications Administered During Your Visit No data available for this section Immunizations No data available for this section
--- OUTSIDE RECORDS SUMMARY | 2018-10-25 05:44 | XMS REPORT | Summary of Care ---
Author Author [facility] Outpatient Imaging - [place] Organization [facility] Outpatient [facility] - [place] Address Unknown Phone Unavailable Encounter HQ Amandar_franco([facility]) [id number] Date(s): 01/29/17 - 01/29/17 [facility] Outpatient Imaging - [place] [address] [place] [phone] Discharge Disposition: Home or Self Care Attending Physician: Vahid Hanson MD Vital Signs [...]
[2018-10-25 10:05] VITALS: BP 121/67
--- NOTE | 2018-10-27 22:41 | Operative Report ---
DATE OF PROCEDURE: PREOPERATIVE DIAGNOSES: 1. Soft tissue mass, left foot interdigital. 2. Hammertoe with bone spurs, second and third digits, left foot. POSTOPERATIVE DIAGNOSES: 1. Soft tissue mass, left foot interdigital. 2. Hammertoe with bone spurs, second and third digits, left foot. TITLE OF THE OPERATIONS: 1. Excision of soft tissue mass, left foot. 2. Arthroplasty with exostectomy, second and third digits, left foot. Human tissue allograft was applied as well. PROCEDURE IN DETAIL: The patient was taken to the operating room in a mildly sedated state and placed upon the operating room table in supine position. Following induction of general anesthetic, the left lower extremity was elevated to 60 degrees to exsanguinate before inflating the pneumatic thigh tourniquet to 350 mmHg to good hemostasis. Left lower extremity was placed upon the operating room table prior to performing the following procedures: PROCEDURE #1: Excision of the soft tissue mass of the left foot. An approximate 2.5-cm lesion was noted interdigitally between the second and third digits extending dorsalward on the left foot. The incision was circumscribed and excised full thickness through skin, subcutaneous tissue, and deep tissues all on the left foot. The area was irrigated. Deep tissues were electrocauterized. Human tissue allograft was applied to the area and closure with a combination of 3-0 Vicryl, 4-0 nylon. Attention was then directed to the dorsal aspect of the foot for the arthroplasty, second and third digits with exostectomies of the left foot. A linear longitudinal incision was made across the dorsolateral aspect of the second digit and dorsomedial aspect of the third digit. This incision was deepened via sharp and blunt dissection down to the level of the capsular structure. The capsule was entered and exostosis resected utilizing oscillating saw and power rasp. With this having been accomplished, the area was irrigated with copious amounts of sterile saline solution. Deep closure was 3-0 Vicryl and skin closure 4-0 nylon, each a separate incision. These areas were all then blocked with 0.5 Marcaine, Decadron LA. Release of the pneumatic thigh tourniquet showed a normal hyperemic flush to all digits of the left foot. Patient tolerated the procedure and anesthesia very well. Job#: [id number]
== END | disposition home or self-care (01) ==
LOC: OR 05:41
PROVIDERS: ATTEND Podiatrist Foot Surgery
DX: D36.7 Benign neoplasm of other specified sites (principal); M20.42 Other hammer toe(s) (acquired), left foot; G47.33 Obstructive sleep apnea (adult) (pediatric); J45.909 Unspecified asthma, uncomplicated; I10 Essential (primary) hypertension; K21.9 Gastro-esophageal reflux disease without esophagitis; K58.9 Irritable bowel syndrome, unspecified; Z88.2 Allergy status to sulfonamides; Z88.8 Allergy status to other drugs, medicaments and biological substances; Z88.6 Allergy status to analgesic agent; Z01.810 Encounter for preprocedural cardiovascular examination; Z01.812 Encounter for preprocedural laboratory examination
CPT/HCPCS: 28041; 28285 ×2; 36415 ×2; 80048; 84132; 85025; 88305; 93005; C1713; J0690; J1100; J1885; J2001; J2250; J2270; J2405; J2704; J2710; Q4100; 88304

== ENCOUNTER → 2019-03-20 | Day surgery (SDC) | payer BC ==
[2019-03-17 17:19] LABS: ANION GAP 6.3 mmol/L (8-16); BLOOD UREA NITROGEN 9 mg/dL (7-26); BUN/CREATININE RATIO 13 (6-25); CALCIUM 9.5 mg/dL (8.4-10.2); CARBON DIOXIDE 36 mmol/L (22-29); CHLORIDE 102 mmol/L (98-107); EST GLOMERULAR FILTRATION RATE > 60 ML/MIN (60-); GLUCOSE 86 mg/dL (74-118); POTASSIUM 3.3 mmol/L (3.5-5.1); SODIUM 141 mmol/L (136-145)
[~2019-03-20] MED LIST changes: -BUPIVACAINE 0.25% 30ML SDV INJ ONE; +BUPIVACAINE HCL 0.5% INJ 30 ML VIAL INJ ONE; +CEFAZOLIN SOD 1 GM/NS 50ML 50 ML IV ONE; -CEFAZOLIN SOD 2 GM/D5W 50ML 50 ML IV ONE; -DESFLURANE 240 ML BTL INH ONE; +GLYCOPYRROLATE INJ 1MG/ 5 ML SYR ONE; +LEXAPRO20 MG PO; +MUPIROCIN 2% OINT 22 GM TUBE ONE; -NEOSTIGMINE 1 MG/ML 10ML VIAL ONE; +SEVOFLURANE INHAL SOLN 250 ML PEN BTL ONE
--- OUTSIDE RECORDS SUMMARY | 2019-03-20 05:52 | XMS REPORT | Summary of Care ---
Author Author [facility] Organization [facility] Address Unknown Phone Unavailable Encounter CLARISSA Arenas(MIHAELA) [phone] Date(s): 06/26/18 - 06/26/18 [facility] [address] [address]- [phone] Encounter Diagnosis Postmenopausal bleeding (Final) - 09/05/18 Essential (primary) hypertension (Final) - Gastro-esophageal reflux disease without esophagitis (Final) - Obstructive sleep apnea (adult) (pediatric) (Final) - Unspecified asthma, uncomplicated (Final) - Pure hypercholesterolemia, unspecified (Final) - Hyperlipidemia, unspecified (Final) - Major depressive disorder, single episode, unspecified (Final) - Anxiety disorder, unspecified (Final) - Obesity, unspecified (Final) - Body mass index (BMI) 40.0-44.9, adult (Final) - Discharge Disposition: Home or Self Care Attending Physician: Vahid Hanson MD Referring Physician: Vahid Hanson MD Vital Signs 1 2 3 Most recent to oldest [Reference Range]: 157.48 cm (06/26/18 7:06 AM) 157.48 cm (06/17/18 1:11 PM) Height 137/94 mmHg (06/26/18 11:11 AM) 140/71 mmHg (06/26/18 10:45 AM) 146/66 mmHg *HI* (06/26/18 10:30 AM) Blood Pressure [90-140/60-90 mmHg] 14 BRMIN (06/26/18 11:11 AM) 12 BRMIN *LOW* (06/26/18 10:45 AM) 16 BRMIN (06/26/18 10:30 AM) Respiratory Rate [14-20 BRMIN] 66 bpm (06/26/18 6:58 AM) 61 bpm (06/17/18 1:11 PM) Peripheral Pulse Rate [60-100 bpm] 109.091 kg (06/26/18 7:06 AM) 109.545 kg (06/17/18 1:11 PM) Weight 43.99 m2 (06/26/18 7:06 AM) 44.17 m2 (06/17/18 1:11 PM) Body Mass Index Problem List No data available for this section Allergies, Adverse Reactions, Alerts Substance Reaction Severity Status sulfa drugs Active Dilaudid Active Reglan Active Adhesive Active valACYclovir Active Medications acetaminophen (ANES) 10 mg Route: IV, Drug form: INJ, Start date: 06/26/18 7:53:00 CDT, Stop date: 06/26/18 8:53:00 CDT Start Date: 06/26/18 Stop Date: 06/26/18 Status: Completed ANES flumazenil 0.2 mg, 2 mL, Route: IVP, Drug form: INJ, PRN, Dosing Weight 109.091, kg, PRN Be nzodiazepine Reversal, Initial dose, Start date: 06/26/18 8:48:00 CDT, Duration: 30 day, Stop date: 07/26/18 8:47:00 CDT Notes: (Same as: Romazicon) Start Date: 06/26/18 Stop Date: 06/27/18 Status: Discontinued ANES ketOROLAC 30 mg, Route: IVP, ONCE, Dosing Weight 109.091, kg, Start date: 06/26/18 8:48:00 CDT, Stop date: 06/26/18 8:48:00 CDT Start Date: 06/26/18 Stop Date: 06/26/18 Status: Completed ANES naloxone 0.4 mg, 1 mL, Route: IVP, Drug form: INJ, Q2MIN, Dosing Weight 109.091, kg, PRN Narcotic Reversal, Start date: 06/26/18 8:48:00 CDT, Duration: 8 doses or times, Stop date: 06/27/18 0:00:00 CDT Notes: Same as Narcan Start Date: 06/26/18 Stop Date: 06/27/18 Status: Completed ANES ondansetron 4 mg, 2 mL, Route: IVP, Drug form: INJ, ONCE, Dosing Weight 109.091, kg, PRN Vasile sea & Vomiting, Start date: 06/26/18 8:48:00 CDT Notes: (Same as: Zofran) MEDICATION WASTE Product Size: 4 mgProduct Was caterina: ___ mg Start Date: 06/26/18 Stop Date: 06/27/18 Status: Discontinued ANES oxyCODONE 10 mg, 2 tab, Route: PO, Drug form: TAB, Q4H, Dosing Weight 109.091, kg, PRN Joie n Score 7-10, Start date: 06/26/18 8:48:00 CDT, Duration: 30 day, Stop date: 8:47:00 CDT Notes: (Same as: Roxicodone) Start Date: 06/26/18 Stop Date: 06/27/18 Status: Discontinued ANES oxyCODONE 5 mg, 1 tab, Route: PO, Drug form: TAB, Q4H, Dosing Weight 109.091, kg, PRN Pain Score 4-6, Start date: 06/26/18 8:48:00 CDT, Duration: 30 day, Stop date: 07/26 8:47:00 CDT Notes: (Same as: Roxicodone) Start Date: 06/26/18 Stop Date: 06/27/18 Status: Discontinued ANES promethazine 6.25 mg, 0.25 mL, Route: IVPB, Drug form: INJ, ONCE, Dosing Weight 109.091, kg, PRN Nausea & Vomiting, Start date: 06/26/18 8:48:00 CDT Notes: Do not give IV push. (Same as: Phenergan) Start Date: 06/26/18 Stop Date: 06/27/18 Status: Discontinued ANES scopolamine 1.5 mg transdermal film 1 patch, Route: TOP, Drug Form: ERFILM, Dosing Weight 109.091, kg, ONCE, Apply b ehind ear. Avoid use in elderly., Start date: 06/26/18 8:48:00 CDT, Stop date: 06/26/18 8:48:00 CDT Notes: Change patch every 72 hours (Same as: Transderm-Scop) Start Date: 06/26/18 Stop Date: 07/07/18 Status: Discontinued Bystolic 10 mg oral tablet 10 mg=1 tab, PO, Daily, # 30 tab, 0 Refill(s) Start Date: 06/17/18 Status: Ordered Crestor 10 mg oral tablet 10 mg=1 tab, PO, Bedtime, # 30 tab, 0 Refill(s) Start Date: 06/17/18 Status: Ordered dexamethasone (ANES) Route: IV, Drug form: INJ, ONCE, Stop date: 06/26/18 8:29:00 CDT Start Date: 06/26/18 Stop Date: 06/26/18 Status: Completed fentaNYL (ANES) Route: IV, Drug form: INJ, ONCE, Stop date: 06/26/18 8:34:00 CDT Start Date: 06/26/18 Stop Date: 06/26/18 Status: Completed hydrALAZINE 10 mg, 0.5 mL, Route: IV, Drug form: INJ, Q20Min, Dosing Weight 109.091, kg, Sta rt date: 06/26/18 9:20:00 CDT, Duration: 2 doses or times, Stop date: 06/26/18 9 :40:00 CDT Notes: (Same as: Apresoline)Push over 5 minutes Start Date: 06/26/18 Stop Date: 06/26/18 Status: Completed hydrochlorothiazide 25 mg oral tablet 25 mg=1 tab, PO, Daily, # 30 tab, 0 Refill(s) Start Date: 06/17/18 Status: Ordered ibuprofen 600 mg oral tablet 600 mg=1 tab, PO, Q8H, # 30 tab, 0 Refill(s), Pharmacy: [facility] Start Date: 06/26/18 Stop Date: 07/06/18 Status: Completed Lactated Ringers Injection IV (ANES) 1000 mL Route: IV, Total Volume: 1,000, Start date: 06/26/18 7:31:00 CDT, Stop date: 8:31:00 CDT Start Date: 06/26/18 Stop Date: 06/26/18 Status: Completed lidocaine (ANES) Route: IV, Drug form: INJ, ONCE, Stop date: 06/26/18 8:34:00 CDT Start Date: 06/26/18 Stop Date: 06/26/18 Status: Completed midazolam (ANES) Route: IV, Drug form: SOLN, ONCE, Stop date: 06/26/18 8:34:00 CDT Start Date: 06/26/18 Stop Date: 06/26/18 Status: Completed morphine Sulfate 2 mg, 0.5 mL, Route: IV, Drug form: INJ, Q10Min, Dosing Weight 109.091, kg, PRN Pain Score 6-10, Start date: 06/26/18 9:35:00 CDT, Duration: 5 doses or times, S top date: 06/27/18 0:00:00 CDT Notes: (Same as:MORPhine Sulfate) Start Date: 06/26/18 Stop Date: 06/27/18 Status: Completed Multiple Vitamins oral capsule 1 cap, PO, Daily, # 30 cap, 0 Refill(s) Start Date: 06/17/18 Status: Ordered Broad[place]-3 1000 mg oral capsule 1,000 mg=1 cap, PO, TID, 0 Refill(s) Start Date: 06/17/18 Status: Ordered ondansetron (ANES) Route: IV, Drug form: INJ, ONCE, Stop date: 06/26/18 8:38:00 CDT Start Date: 06/26/18 Stop Date: 06/26/18 Status: Completed propofol (ANES) Route: IV, Drug form: INJ, ONCE, Stop date: 06/26/18 8:34:00 CDT Start Date: 06/26/18 Stop Date: 06/26/18 Status: Completed Protonix 40 mg oral enteric coated tablet 40 mg=1 tab, PO, Daily, # 30 tab, 0 Refill(s) Start Date: 06/17/18 Status: Ordered succinylcholine (ANES) Route: IV, Drug form: INJ, ONCE, Stop date: 06/26/18 8:34:00 CDT Start Date: 06/26/18 Stop Date: 06/26/18 Status: Completed tramadol 50 mg, 1 tab, Route: PO, Drug form: TAB, Q4H, Dosing Weight 109.091, kg, PRN Joie n Score 1-5, Start date: 06/26/18 8:52:00 CDT, Duration: 1 day, Stop date: 06/27 8:51:00 CDT Notes: Not to exceed 400mg/day. (Same As: Ultram) Start Date: 06/26/18 Stop Date: 06/27/18 Status: Discontinued tramadol 100 mg, Route: PO, Drug form: TAB, Q4H, Dosing Weight 109.091, kg, PRN Pain Scor e 6-10, Start date: 06/26/18 8:52:00 CDT, Duration: 1 day, Stop date: 06/27/18 8 :51:00 CDT Start Date: 06/26/18 Stop Date: 06/27/18 Status: Discontinued Results ELECTROLYTES Most recent to 1 oldest [Reference Range]: Sodium Lvl [135-145 145 mEq/L mEq/L] (06/17/18 10:45 AM) Potassium Lvl 4.0 mEq/L [3.5-5.1 mEq/L] (06/17/18 10:45 AM) Chloride Lvl [95-109 102 mEq/L mEq/L] (06/17/18 10:45 AM) CO2 [24-32 mEq/L] 34 mEq/L *HI* (06/17/18 10:45 AM) AGAP [10.0-20.0 13.0 mEq/L mEq/L] (06/17/18 10:45 AM) CHEM PANEL Most recent to 1 oldest [Reference Range]: Creatinine Lvl 0.78 mg/dL [0.50-1.40 mg/dL] (06/17/18 10:45 AM) eGFR 86 mL/min/1.73m2 1 *NA* (06/17/18 10:45 AM) BUN [7-22 mg/dL] 20 mg/dL (06/17/18 10:45 AM) Glucose Lvl [70-99 80 mg/dL mg/dL] (06/17/18 10:45 AM) Calcium Lvl 9.7 mg/dL [8.5-10.5 mg/dL] (06/17/18 10:45 AM) 1Result Comment: The eGFR is calculated using the CKD-EPI formula. In most young, healthy individuals the eGFR will be >90 mL/min/1.73m2. The eGFR declines with age. An eGFR of 60-89 may be normal in some populations, particularly the elderly, for whom the CKD-EPI formula has not been extensively validated. Use of the eGFR is not recommended in the following populations: Individuals with unstable creatinine concentrations, including patients and those with serious co-morbid conditions. Patients with extremes in muscle mass or diet. The data above are obtained from the National Kidney Disease Education Program ( NKDEP) which additionally recommends that when the eGFR is used in patients with extremes of body mass index for purposes of drug dosing, the eGFR should be mul tiplied by the estimated BMI. URINE AND STOOL Most recent to 1 oldest [Reference Range]: UA Turbidity [Clear] Clear (06/17/18 10:45 AM) UA Color [Yellow] Yellow *NA* (06/17/18 10:45 AM) UA pH [5.0-8.0] 5.5 (06/17/18 10:45 AM) UA Spec Grav 1.016 [<=1.030] (06/17/18 10:45 AM) UA Glucose [Negative Negative mg/dL mg/dL] *NA* (06/17/18 10:45 AM) UA Blood [Negative] Negative (06/17/18 10:45 AM) UA Ketones [Negative Negative mg/dL mg/dL] *NA* (06/17/18 10:45 AM) UA Protein [Negative Negative mg/dL mg/dL] (06/17/18 10:45 AM) UA Urobilinogen <=1.0 mg/dL [0.1-1.0 mg/dL] *NA* (06/17/18 10:45 AM) UA Bili [Negative] Negative *NA* (06/17/18 10:45 AM) UA Leuk Est Moderate [Negative] *ABN* (06/17/18 10:45 AM) UA Nitrite Negative [Negative] (06/17/18 10:45 AM) UA WBC [0-5 /HPF] 21 /HPF *HI* (06/17/18 10:45 AM) UA Sq Epi [Few /LPF] Few /LPF *NA* (06/17/18 10:45 AM) UA Mucus [None Seen Few /LPF /LPF] *NA* (06/17/18 10:45 AM) Micro? Performed *NA* (06/17/18 10:45 AM) HEMATOLOGY Most recent to 1 oldest [Reference Range]: WBC [3.7-10.4 K/CMM] 18.0 K/CMM *HI* (06/17/18 10:45 AM) RBC [4.20-5.40 4.88 M/CMM M/CMM] (06/17/18 10:45 AM) Hgb [12.0-16.0 g/dL] 14.4 g/dL (06/17/18 10:45 AM) Hct [36.0-48.0 %] 43.6 % (06/17/18 10:45 AM) MCV [80.0-98.0 fL] 89.4 fL (06/17/18 10:45 AM) MCH [27.0-31.0 pg] 29.5 pg (06/17/18 10:45 AM) MCHC [32.0-36.0 33.0 g/dL g/dL] (06/17/18 10:45 AM) RDW [11.5-14.5 %] 13.7 % (06/17/18 10:45 AM) MPV [7.4-10.4 fL] 9.0 fL (06/17/18 10:45 AM) Platelet [133-450 341 K/CMM K/CMM] (06/17/18 10:45 AM) Segs [45.0-75.0 %] 66.2 % (06/17/18 10:45 AM) Lymphocytes 26.9 % [20.0-40.0 %] (06/17/18 10:45 AM) Monocytes [2.0-12.0 6.3 % %] (06/17/18 10:45 AM) Eosinophils [0.0-4.0 0.4 % %] (06/17/18 10:45 AM) Basophils [0.0-1.0 0.2 % %] (06/17/18 10:45 AM) Neutrophils # 11.9 K/CMM [1.5-8.1 K/CMM] *HI* (06/17/18 10:45 AM) Lymphocytes # 4.8 K/CMM [1.0-5.5 K/CMM] (06/17/18 10:45 AM) Monocytes # [0.0-0.8 1.1 K/CMM K/CMM] *HI* (06/17/18 10:45 AM) Eosinophils # 0.1 K/CMM [0.0-0.5 K/CMM] (06/17/18 10:45 AM) Microbiology Reports TEST: Culture: Urine STATUS: Auth (Verified) BODY SITE: SOURCE: Urine, Clean Catch COLLECTED DATE/TIME: 06/17/18 10:45 AM FINAL REPORT 10,000 - 50,000 CFU/mL Klebsiella pneumoniae ssp pneumoniae <10,000 CFU/mL Gram Negative Rods #2 <10,000 CFU/mL Skin Lili ORGANISM:Klebsiella pneumoniae ssp pneumoniae Immunizations No data available for this section Procedures Procedure Date Related Diagnosis Body Site Status Appendectomy Completed Carpal tunnel release1 Completed Gallbladder excision Completed Hernia repair2 Completed Knee arthroplasty3 Completed Shoulder repair Completed Tonsillectomy Completed 1Balat 2twice 32 times left leg Social History Social History Type Response Smoking Status Never smoker; Exposure to Tobacco Smoke None; Cigarette Smoking Last 365 Days No; Reg Smoking Cessation Counseling No entered on: 06/26/18 Assessment and Plan Extracted from: Title: Pre Op History and Physical Author: Vahid Hanson MD Date: 06/25/18 Department of Gynecology Preoperative History and Physical CC: "Here for surgery" HPI: Ms. Crow is a 57 yo woman who has been amenorrheic for years, and recently stated having vginal bleeding. She previously has had an endometrial biopsy for irregular menses, but has not had an evaluation now that she is having post menopausal bleeding. Patient denies WASSERMAN, F/CH, SOB, chest pain, N/V, dysuria, diarrhea/constipation, and abnormal vaginal discharge or bleeding. Review of Symptoms General: Denies fever/chills/night sweats, change in appetite/weight/sleep pattern Skin: Denies rashes, itching, lesions, hives CV: Denies chest pain, palpaitations, murmurs Pulmonary: Denies SOB, Dyspnea, Cough, Hemoptysis Breasts: Denies masses, discharge, pain, tenderness GI: Denies GERD, Nausea/Vomitting, Diarrhea/Constipation or [place]zia : Denies dysuria, polyuria, gross hematuria, flank pain MS: Denies muscle pain/weakness Neuro: Denies seizures, numbness, tremors, WASSERMAN Vascular: Denies cramping/pain Psych: Denies depression/SI/HI Heme: Denies easy brusing/bleeding Obstetric History: , s/p 3 Gynecological History: 10 /regular q month H/o STD's: Denies H/o abnormal pap requiring cryothreapy Last pap NILM 05/2015, HPV neg Reports menopause at age 54 Medical History:HTN, depression, GERD, hypercholesterol, colitis, sleep apnea Surgical History: D&C, cholecystectomy, carpal tunnel, hernias, shoulder, knee, appendix Medications: Bystolic 10 mg, Protonix 40 mg, HCTZ 25 mg, Crestor 10 mg, Lorazepam .5 mg, Probiotics Allergies: Sulfa drugs, Dilaudid, Reglan, Valcyclovir, Adhesives, Meloxicam Social History: Denies alcohol, tobacco use or drug use. Family History: HTN in mother, CAD in brother, thyroid disoder Physical Exam: Deferred to day of surgery Labs: please see care 4 Imaging: Discussion: Multiple axial and sagittal images of [...] 1. Endometrium and intrauterine cavity are unremarkable. Pathology: none A/P: Ms. Crow is a 57 yo woman who has been amenorrheic for years, and recently stated having vginal bleeding. 1. Postmenopausal bleeding - Patient reports menopause at the age of 54, and in April had an episode of vaginal bleeding - Pap UTD, WNL - TVUS with no structural abnormalities, strip 0.8 cm - Will be for hysterscopic D&C for endometrial evaluation of PMB. Discussed with patient risks, benefits and alternatives including bleeding, pain, infection, scarring, possible need for additional procedures. All questions answered and patient desires to proceed. 2. HTN - Patient currently on bistolic and HCTZ 3. Hyperlipidemia - Patient currently on Crestor 4. Depression/anxiety - Patient currently on lorezapm PRN 5. GERD - Patient on Protonix daily * HCM - Pap: UTD - BCM: Vasectomy, post menopausal Discussed with Dr. Hanson Dispo: Admit and plan for OR Joy Clinton MD/MPH [employer] PGY2
--- OUTSIDE RECORDS SUMMARY | 2019-03-20 05:52 | XMS REPORT | Continuity of Care Document ---
Author Author [facility] Interface Address Unknown Phone Unavailable Problems Problem Status Onset Date Classification Date Reported Comments Source Postmenopausal bleeding 09/06/2018 01/13/2019 [facility], RADHA Bobby Encounter for screening mammogram for malignant neoplasm of breast 06/05/2018 12/21/2018 OP[facility] [place] N95.0 - POSTMENOPAUSAL BLEEDING Active 05/24/2018 [facility] [place] POST MENAPUASAL BLEEDING, N95.0 Active 05/24/2018 [facility] Z12.31 - ENCNTR SCREEN MAMMOGRAM FOR MA Active 01/02/2017 RAD[facility] [place] Final: Deformity of Orbit Due to Trauma or Surgery 12/04/2013 [facility] - POSTMENOPAUSAL Active 07/23/2013 LUISAD [place] Essential hypertension 01/13/2019 [facility] Gastro-esophageal reflux disease without esophagitis 01/13/2019 [facility] Obstructive sleep apnea (pediatric) 01/13/2019 [facility] Unspecified asthma, uncomplicated 01/13/2019 [facility] Pure hypercholesterolemia, unspecified 01/13/2019 [facility] Hyperlipidemia, unspecified 01/13/2019 [facility] Major depressive disorder, single episode, unspecified 01/13/2019 [facility] Anxiety disorder, unspecified 01/13/2019 [facility] Obesity, unspecified 01/13/2019 [facility] Body mass index 40.0-44.9, adult 01/13/2019 [facility] Abdominal pain Active Problem 11/30/2017 [facility] UTI Active Problem 11/30/2017 [facility] Medications Medication Details Route Status Patient Instructions Ordering Provider Order Date Source Morphine 2 mg, 0.5 mL, Route: IV, Drug form: INJ, Q10Min, Dosing Weight 109.091, kg, PRN Pain Score 6-10, Start date: 06/26/18 9:35:00 CDT, Duration: 5 doses or times, Stop date: 06/27/18 0:00:00 CDTNotes: (Same as:MORPhine Sulfate) No Longer Active 06/26/2018 [facility] Hydralazine 10 mg, 0.5 mL, Route: IV, Drug form: INJ, Q20Min, Dosing Weight 109.091, kg, Start date: 06/26/18 9:20:00 CDT, Duration: 2 doses or times, Stop date: 06/26/18 9:40:00 CDTNotes: (Same as: Apresoline) Push over 5 minutes Inactive 06/26/2018 [facility] Tramadol 50 mg, 1 tab, Route: PO, Drug form: TAB, Q4H, Dosing Weight 109.091, kg, PRN Pain Score 1-5, Start date: 06/26/18 8:52:00 CDT, Duration: 1 day, Stop date: 06/27/18 8:51:00 CDTNotes: Not to exceed 400mg/day. (Same As: Ultram) No Longer Active 06/26/2018 [facility] Oxycodone 10 mg, 2 tab, Route: PO, Drug form: TAB, Q4H, Dosing Weight 109.091, kg, PRN Pain Score 7-10, Start date: 06/26/18 8:48:00 CDT, Duration: 30 day, Stop date: 07/26/18 8:47:00 CDTNotes: (Same as: Roxic odone) No Longer Active 06/26/2018 [facility] Flumazenil 0.2 mg, 2 mL, Route: IVP, Drug form: INJ, PRN, Dosing Weight 109.091, kg, PRN Benzodiazepine Reversal, Initial dose, Start date: 06/26/18 8:48:00 CDT, Duration: 30 day, Stop date: 07/26/18 8:47:00 CD TNotes: (Same as: Romazicon) No Longer Active 06/26/2018 [facility] Naloxone 0.4 mg, 1 mL, Route: IVP, Drug form: INJ, Q2MIN, Dosing Weight 109.091, kg, PRN Narcotic Reversal, Start date: 06/26/18 8:48:00 CDT, Duration: 8 doses or times, Stop date: 06/27/18 0:00:00 CDTNotes: Same as Narcan No Longer Active 06/26/2018 [facility] Ondansetron 4 mg, 2 mL, Route: IVP, Drug form: INJ, ONCE, Dosing Weight 109.091, kg, PRN Nausea & Vomiting, Start date: 06/26/18 8:48:00 CDTNotes: (Same as: Zofran) MEDICATION WASTE Product Size: 4 mg Product Wasted: ___ mg No Longer Active 06/26/2018 [facility] Promethazine 6.25 mg, 0.25 mL, Route: IVPB, Drug form: INJ, ONCE, Dosing Weight 109.091, kg, PRN Nausea & Vomiting, Start date: 06/26/18 8:48:00 CDTNotes: Do not give IV push. (Same as: Phenergan) No Longer Active 06/26/2018 [facility] 72 HR Scopolamine 0.0139 MG/HR Transdermal Patch 1 patch, Route: TOP, Drug Form: ERFILM, Dosing Weight 109.091, kg, ONCE, Apply behind ear. Avoid use in elderly., Start date: 06/26/18 8:48:00 CDT, Stop date: 06/26/18 8:48:00 CDTNotes: Change patch every 72 hours (Same as: Transderm-Scop) No Longer Active 06/26/2018 [facility] Ketorolac 30 mg, Route: IVP, ONCE, Dosing Weight 109.091, kg, Start date: 06/26/18 8:48:00 CDT, Stop date: 06/26/18 8:48:00 CDT Inactive 06/26/2018 [facility] ondansetron (ANES) Route: IV, Drug form: INJ, ONCE, Stop date: 06/26/18 8:38:00 CDT Inactive 06/26/2018 [facility] lidocaine (ANES) Route: IV, Drug form: INJ, ONCE, Stop date: 06/26/18 8:34:00 CDT Inactive 06/26/2018 [facility] propofol (ANES) Route: IV, Drug form: INJ, ONCE, Stop date: 06/26/18 8:34:00 CDT Inactive 06/26/2018 [facility] succinylcholine (ANES) Route: IV, Drug form: INJ, ONCE, Stop date: 06/26/18 8:34:00 CDT Inactive 06/26/2018 [facility] midazolam (ANES) Route: IV, Drug form: SOLN, ONCE, Stop date: 06/26/18 8:34:00 CDT Inactive 06/26/2018 [facility] fentaNYL (ANES) Route: IV, Drug form: INJ, ONCE, Stop date: 06/26/18 8:34:00 CDT Inactive 06/26/2018 [facility] ibuprofen 600 mg oral tablet 600 mg=1 tab, PO, Q8H, # 30 tab, 0 Refill(s), Pharmacy: [facility] [id number] No Longer Active 06/26/2018 [facility] dexamethasone (ANES) Route: IV, Drug form: INJ, ONCE, Stop date: 06/26/18 8:29:00 CDT Inactive 06/26/2018 [facility] acetaminophen (ANES) 10 mg Route: IV, Drug form: INJ, Start date: 06/26/18 7:53:00 CDT, Stop date: 06/26/18 8:53:00 CDT Inactive 06/26/2018 [facility] Lactated Ringers Injection IV (ANES) 1000 mL Route: IV, Total Volume: 1,000, Start date: 06/26/18 7:31:00 CDT, Stop date: 06/26/18 8:31:00 CDT Inactive 06/26/2018 [facility] Clearbrook-3 1000 mg oral capsule 1,000 mg=1 cap, PO, TID, 0 Refill(s) Active 06/17/2018 [facility] Multiple Vitamins oral capsule 1 cap, PO, Daily, # 30 cap, 0 Refill(s) Active 06/17/2018 [facility] Rosuvastatin calcium 10 MG Oral Tablet [Crestor] 10 mg=1 tab, PO, Bedtime, # 30 tab, 0 Refill(s) Active 06/17/2018 [facility] Hydrochlorothiazide 25 MG Oral Tablet 25 mg=1 tab, PO, Daily, # 30 tab, 0 Refill(s) Active 06/17/2018 [facility] nebivolol 10 MG Oral Tablet [Bystolic] 10 mg=1 tab, PO, Daily, # 30 tab, 0 Refill(s) Active 06/17/2018 [facility] pantoprazole 40 MG Enteric Coated Tablet [Protonix] 40 mg=1 tab, PO, Daily, # 30 tab, 0 Refill(s) Active 06/17/2018 [facility] Albuterol Sulfate (Proair Hfa Inhaler*) 8.5 Gm Inh, Active 01/12/2017 [facility] Escitalopram Oxalate (Lexapro) 10 Mg Tablet, 10 Mg Oral Daily Active 01/12/2017 [facility] Fa/Mv,Ca,Iron,Min/Lycopene/Lut (Centrum Tablet) 1 Each Tablet, 1 Tab Oral Daily Active 01/12/2017 [facility] Fexofenadine Hcl (Symone) 180 Mg Tablet, 180 Mg Oral Daily Active 01/12/2017 [facility] Hydrochlorothiazide 25 Mg Tablet, 25 Mg Oral Daily Active 01/12/2017 [facility] Hydrocodone/Ibuprofen (Reprexain 5-200 Mg Tablet) 1 Each Tablet, 1 Tab Oral Every 6 Hours as needed Active 01/12/2017 [facility] Clearbrook-3/Dha/Epa/Fish Oil (Fish Oil 1,400 Mg Softgel) 1 Each Capsule., Active 01/12/2017 [facility] Simvastatin (Zocor) 20 Mg Tablet, 20 Mg Oral Daily Active 01/12/2017 [facility] Aspirin 81 Mg Tablet, 81 Mg Oral Daily Active 01/28/2013 [facility] Ranitidine Hcl (Zantac 75) 75 Mg Tablet, 300 Mg Oral Bedtime Active 01/28/2013 [facility] Sucralfate (Carafate) 1 Gm Tablet, 1 Gm Oral Four Times Daily Active 01/28/2013 [facility] Vitamin B Complex & Vit C No.3 (B Complex With Vitamin C) 1 Each Capsule, Active 01/28/2013 [facility] Cephalexin Monohydrate (Keflex) 500 Mg Capsule, 500 Mg Oral Three Times A Day Active 10/26/2012 [facility] Hydrochlorothiazide 25 Mg Tablet, 25 Mg Oral Daily Active 10/26/2012 [facility] Mvi , Active 10/26/2012 [facility] Dicyclomine Hcl (Bentyl) 10 Mg Capsule Four Times Daily Active [facility] Hydrochlorothiazide 25 Mg Tablet Daily Active [facility] Levothyroxine Sodium 50 Mcg Tablet Daily Active [facility] Nebivolol Hcl (Bystolic) 5 Mg Tablet Daily Active [facility] Pantoprazole Sodium (Protonix) 40 Mg Tablet.dr Daily Active [facility] Ropinirole Hcl (Requip) 5 Mg Tablet Daily Active [facility] Allergies, Adverse Reactions, Alerts Substance Category Reaction Severity Reaction type Status Date Reported Comments Source Sulfa (Sulfonamide Antibiotics) Mild Allergy to Substance Active 11/29/2017 [facility] Hydromorphone Unknown Allergy to Substance Active 11/29/2017 [facility] Metoclopramide Mild Allergy to Substance Active 11/29/2017 [facility] Valacyclovir Unknown Allergy to Substance Active 11/29/2017 [facility] sulfa drugs Assertion Drug allergy Active [facility] Dilaudid Assertion Drug allergy Active [facility] Reglan Assertion Drug allergy Active [facility] Adhesive Assertion Drug allergy Active [facility] valACYclovir Assertion Drug allergy Active [facility] Immunizations Immunization Date Given Site Status Last Updated Comments Source Results Order Name Results Value Reference Range Date Interpretation Comments Source ELECTROLYTES AGAP 13.0 meq/L 10.0 - 20.0 06/17/2018 [facility] ELECTROLYTES eGFR 86 mL/min/1.73m2 06/17/2018 Result Comment: The eGFR is calculated using the [...] from the National Kidney Disease Education Program (NKDEP) which additionally recommends that when the eGFR is used in patients with extremes of body mass index for purposes of drug dosing, the eGFR should be multiplied by the estimated BMI. [facility] ELECTROLYTES Sodium Lvl 145 meq/L 135 - 145 06/17/2018 [facility] ELECTROLYTES BUN 20 mg/dL 7 - 22 06/17/2018 [facility] ELECTROLYTES Creatinine Lvl 0.78 mg/dL 0.50 - 1.40 06/17/2018 [facility] ELECTROLYTES Potassium Lvl 4.0 meq/L 3.5 - 5.1 06/17/2018 [facility] ELECTROLYTES Chloride Lvl 102 meq/L 95 - 109 06/17/2018 [facility] ELECTROLYTES Glucose Lvl 80 mg/dL 70 - 99 06/17/2018 [facility] ELECTROLYTES CO2 34 meq/L 24 - 32 06/17/2018 [facility] ELECTROLYTES Calcium Lvl 9.7 mg/dL 8.5 - 10.5 06/17/2018 [facility] HEMATOLOGY MCV 89.4 fL 80.0 - 98.0 06/17/2018 [facility] HEMATOLOGY RBC 4.88 M/CMM 4.20 - 5.40 06/17/2018 [facility] HEMATOLOGY MPV 9.0 fL 7.4 - 10.4 06/17/2018 [facility] HEMATOLOGY WBC 18.0 K/CMM 3.7 - 10.4 06/17/2018 [facility] HEMATOLOGY RDW 13.7 % 11.5 - 14.5 06/17/2018 [facility] HEMATOLOGY Platelet 341 K/CMM 133 - 450 06/17/2018 [facility] HEMATOLOGY MCHC 33.0 g/dL 32.0 - 36.0 06/17/2018 [facility] HEMATOLOGY MCH 29.5 pg 27.0 - 31.0 06/17/2018 [facility] HEMATOLOGY Hgb 14.4 g/dL 12.0 - 16.0 06/17/2018 [facility] HEMATOLOGY Hct 43.6 % 36.0 - 48.0 06/17/2018 [facility] HEMATOLOGY Eosinophils # 0.1 K/CMM 0.0 - 0.5 06/17/2018 [facility] HEMATOLOGY Monocytes # 1.1 K/CMM 0.0 - 0.8 06/17/2018 [facility] HEMATOLOGY Lymphocytes # 4.8 K/CMM 1.0 - 5.5 06/17/2018 [facility] HEMATOLOGY Neutrophils # 11.9 K/CMM 1.5 - 8.1 06/17/2018 [facility] HEMATOLOGY Basophils 0.2 % 0.0 - 1.0 06/17/2018 [facility] HEMATOLOGY Segs 66.2 % 45.0 - 75.0 06/17/2018 [facility] HEMATOLOGY Eosinophils 0.4 % 0.0 - 4.0 06/17/2018 [facility] HEMATOLOGY Monocytes 6.3 % 2.0 - 12.0 06/17/2018 [facility] HEMATOLOGY Lymphocytes 26.9 % 20.0 - 40.0 06/17/2018 [facility] MEROPENEM:SUSC:PT:ISOLATE:ORDQN:ANTONINA Culture: Urine 10,000 - 50,000 CFU/mL Klebsiella pneumoniae ssp pneumoniae
<10,000 CFU/mL Gram Negative Rods #2
<10,000 CFU/mL Skin Lili 06/17/2018 [facility] MEROPENEM:SUSC:PT:ISOLATE:ORDQN:ANTONINA Klebsiella pneumoniae ssp pneumoniae Klebsiella pneumoniae ssp pneumoniae 06/17/2018 [facility] URINE AND STOOL UA Urobilinogen <=1.0 mg/dL 0.1 - 1.0 06/17/2018 [facility] URINE AND STOOL UA WBC 21 /HPF 0 - 5 06/17/2018 [facility] URINE AND STOOL UA Mucus Few /LPF None Seen /LPF 06/17/2018 [facility] URINE AND STOOL UA Sq Epi Few /LPF Few /LPF 06/17/2018 [facility] URINE AND STOOL UA Leuk Est Moderate *ABN* (06/17/18 10:45 AM) Negative 06/17/2018 [facility] URINE AND STOOL Micro? Performed *NA* (06/17/18 10:45 AM) 06/17/2018 [facility] URINE AND STOOL UA Nitrite Negative (06/17/18 10:45 AM) Negative 06/17/2018 [facility] URINE AND STOOL UA Bili Negative *NA* (06/17/18 10:45 AM) Negative 06/17/2018 [facility] URINE AND STOOL UA Blood Negative (06/17/18 10:45 AM) Negative 06/17/2018 [facility] URINE AND STOOL UA Glucose Negative mg/dL Negative mg/dL 06/17/2018 [facility] URINE AND STOOL UA Ketones Negative mg/dL Negative mg/dL 06/17/2018 [facility] URINE AND STOOL UA Protein Negative mg/dL Negative mg/dL 06/17/2018 [facility] URINE AND STOOL UA pH 5.5 5.0 - 8.0 06/17/2018 [facility] URINE AND STOOL UA Turbidity Clear (06/17/18 10:45 AM) Clear 06/17/2018 [facility] URINE AND STOOL UA Spec Grav 1.016 <=1.030 06/17/2018 [facility] URINE AND STOOL UA Color Yellow *NA* (06/17/18 10:45 AM) Yellow 06/17/2018 [facility] Breast Mammo Scrn ROSS incl CAD MA Breast Mammo Scrn ROSS incl CAD MA BILATERAL DIGITAL SCREENING MAMMOGRAM WITH CAD: 06/03/2018 CLINICAL: Routine/Screening. Current study was evaluated with a Computer Aided Detection (CAD) system. COMPARISON:Comparison is made to exams dated: 01/29/2017 mammogram, 05/17/2015 mammogram - [facility], 05/30/2013 mammogram, 04/26/2011 mammogram, 04/08/2010 mammogram, and 04/05/2009 mammogram - [facility]. TECHNIQUE: Mammographic views [...] is recommended.(06/04/2019) This exam was interpreted at [id number] for Kanu, SL 15. Professional services are provided by the [facility]. Cullen Swanson M.D., cm/penrad:06/03/2018 08:43:18 Decating Machine Operator(s): Stephanie Manzo RT(R)(M), [facility] letter sent: BI-RADS 1/2 Mammogram BI-RADS: 2 Benign 06/03/2018 - - Read by: Brandt Gomez MD Dictated Date/time: 06/03/18 08:43 Electronically Signed by: Brandt Gomez MD 06/03/18 08:43 FINAL REPORT RAD[facility] Bobby Pelvis w Pelvis Transvaginal US Pelvis [...] Olsen MD 05/27/18 15:49 FINAL REPORT RADHA Bobby Specific gravity of Urine by Test strip Specific gravity of Urine by Test strip 1.015 1.010 - 1.025 11/29/2017 [facility] Urine clarity Urine clarity CLEAR CLEAR 11/29/2017 [facility] Urine color determination Urine color determination YELLOW YELLOW 11/29/2017 [facility] Urine erythrocytes detection Urine erythrocytes detection NEGATIVE NEGATIVE 11/29/2017 [facility] Urine glucose detection Urine glucose detection NEGATIVE NEGATIVE 11/29/2017 [facility] Urine ketones detection by automated test strip Urine ketones detection by automated test strip NEGATIVE NEGATIVE 11/29/2017 [facility] Urine leukocyte esterase detection by dipstick Urine leukocyte esterase detection by dipstick NEGATIVE NEGATIVE 11/29/2017 [facility] Urine nitrite detection Urine nitrite detection NEGATIVE NEGATIVE 11/29/2017 [facility] Urine pH measurement by automated test strip Urine pH measurement by automated test strip 5 5 - 7 11/29/2017 [facility] Urine protein measurement by test strip (mass/volume) Urine protein measurement by test strip (mass/volume) NEGATIVE NEGATIVE 11/29/2017 [facility] Urine total bilirubin measurement (mass/volume) Urine total bilirubin measurement (mass/volume) NEGATIVE NEGATIVE 11/29/2017 [facility] Urine urobilinogen measurement by test strip (mass/volume) Urine urobilinogen measurement by test strip (mass/volume) 0.2 0.2 - 1 11/29/2017 [facility] Automated blood basophil count (count/volume) Automated blood basophil count (count/volume) 0.1 0.0 - 0.1 11/29/2017 [facility] Automated blood basophil count as percentage of total leukocytes Automated blood basophil count as percentage of total leukocytes 0.6 0.0 - 1.0 11/29/2017 [facility] Automated blood eosinophil count Automated blood eosinophil count 0.3 0.0 - 0.4 11/29/2017 [facility] Automated blood eosinophil count as percentage of total leukocytes Automated blood eosinophil count as percentage of total leukocytes 2.1 0.0 - 6.0 11/29/2017 [facility] Automated blood hematocrit (volume fraction) Automated blood hematocrit (volume fraction) 40.6 34.2 - 44.1 11/29/2017 [facility] Automated blood lymphocyte count as percentage ot total leukocytes Automated blood lymphocyte count as percentage ot total leukocytes 33.8 18.0 - 39.1 11/29/2017 [facility] Automated blood monocyte count as percentage of total leukocytes Automated blood monocyte count as percentage of total leukocytes 5.7 4.4 - 11.3 11/29/2017 [facility] Automated blood neutrophil count Automated blood neutrophil count 7.1 2.1 - 6.9 11/29/2017 [facility] Automated blood platelet count (count/volume) Automated blood platelet count (count/volume) 266 140 - 360 11/29/2017 [facility] Automated blood segmented neutrophil count as percentage of total leukocytes Automated blood segmented neutrophil count as percentage of total leukocytes 57.2 38.7 - 80.0 11/29/2017 [facility] Automated erythrocyte mean corpuscular hemoglobin (mass per erythrocyte) Automated erythrocyte mean corpuscular hemoglobin (mass per erythrocyte) 29.8 28 - 32 11/29/2017 [facility] Automated erythrocyte mean corpuscular hemoglobin concentration measurement (mass/volume) Automated erythrocyte mean corpuscular hemoglobin concentration measurement (mass/volume) 33.7 31 - 35 11/29/2017 [facility] Automated erythrocyte mean corpuscular volume Automated erythrocyte mean corpuscular volume 88.5 81 - 99 11/29/2017 [facility] Blood erythrocytes automated count (number/volume) Blood erythrocytes automated count (number/volume) 4.59 3.6 - 5.1 11/29/2017 [facility] Blood hemoglobin measurement (moles/volume) Blood hemoglobin measurement (moles/volume) 13.7 12.0 - 16.0 11/29/2017 [facility] Blood leukocytes automated count (number/volume) Blood leukocytes automated count (number/volume) 12.35 4.8 - 10.8 11/29/2017 [facility] Blood lymphocytes count (number/volume) Blood lymphocytes count (number/volume) 4.2 1.0 - 3.2 11/29/2017 [facility] Blood monocytes automated count (number/volume) Blood monocytes automated count (number/volume) 0.7 0.2 - 0.8 11/29/2017 [facility] Estimated glomerular filtration rate (GFR) determination Estimated glomerular filtration rate (GFR) determination null 60 11/29/2017 [facility] Glucose measurement Glucose measurement 109 74 - 118 11/29/2017 [facility] Plasma globulin measurement (mass/volume) Plasma globulin measurement (mass/volume) 4.0 2.3 - 3.5 11/29/2017 [facility] Serum or plasma alanine aminotransferase measurement (enzymatic activity/volume) Serum or plasma alanine aminotransferase measurement (enzymatic activity/volume) 22 0 - 55 11/29/2017 [facility] Serum or plasma albumin measurement (mass/volume) Serum or plasma albumin measurement (mass/volume) 3.9 3.5 - 5.0 11/29/2017 [facility] Serum or plasma albumin/globulin mass ratio Serum or plasma albumin/globulin mass ratio 1.0 0.8 - 2.0 11/29/2017 [facility] Serum or plasma alkaline phosphatase measurement (enzymatic activity/volume) Serum or plasma alkaline phosphatase measurement (enzymatic activity/volume) 103 40 - 150 11/29/2017 [facility] Serum or plasma amylase measurement (enzymatic activity/volume) Serum or plasma amylase measurement (enzymatic activity/volume) 27 25 - 125 11/29/2017 [facility] Serum or plasma anion gap Serum or plasma anion gap 17.3 8 - 16 11/29/2017 [facility] Serum or plasma calcium measurement (mass/volume) Serum or plasma calcium measurement (mass/volume) 9.6 8.4 - 10.2 11/29/2017 [facility] Serum or plasma carbon dioxide, total measurement (moles/volume) Serum or plasma carbon dioxide, total measurement (moles/volume) 28 22 - 29 11/29/2017 [facility] Serum or plasma chloride measurement (moles/volume) Serum or plasma chloride measurement (moles/volume) 100 98 - 107 11/29/2017 [facility] Serum or plasma creatinine measurement (mass/volume) Serum or plasma creatinine measurement (mass/volume) 0.77 0.57 - 1.11 11/29/2017 [facility] Serum or plasma lipase measurement (enzymatic activity/volume) Serum or plasma lipase measurement (enzymatic activity/volume) 13 8 - 78 11/29/2017 [facility] Serum or plasma potassium measurement (moles/volume) Serum or plasma potassium measurement (moles/volume) 3.3 3.5 - 5.1 11/29/2017 [facility] Serum or plasma protein measurement (mass/volume) Serum or plasma protein measurement (mass/volume) 7.9 6.5 - 8.1 11/29/2017 [facility] Serum or plasma sodium measurement (moles/volume) Serum or plasma sodium measurement (moles/volume) 142 136 - 145 11/29/2017 [facility] Serum or plasma total bilirubin measurement (mass/volume) Serum or plasma total bilirubin measurement (mass/volume) 0.4 0.2 - 1.2 11/29/2017 [facility] Serum or plasma urea nitrogen measurement (mass/volume) Serum or plasma urea nitrogen measurement (mass/volume) 12 7 - 26 11/29/2017 [facility] Serum or plasma urea nitrogen/creatinine mass ratio Serum or plasma urea nitrogen/creatinine mass ratio 16 6 - 25 11/29/2017 [facility] Red Cell Distribution Width 12.8 11.7 - 14.4 11/29/2017 [facility] IM GRANULOCYTES % 0.6 0.0 - 1.0 11/29/2017 [facility] Absolute Immature Granulocyte (auto 0.07 0 - 0.1 11/29/2017 [facility] Aspartate Amino Transf (AST/SGOT) 23 5 - 34 11/29/2017 [facility] Automated urine sediment leukocyte count by microscopy (number/high power field) Automated urine sediment leukocyte count by microscopy (number/high power field) null 0 - 5 11/29/2017 [facility] Bacteria detection in urine sediment by light microscopy Bacteria detection in urine sediment by light microscopy MANY NONE 11/29/2017 [facility] Epithelial cells detection in urine sediment by light microscopy Epithelial cells detection in urine sediment by light microscopy MODERATE NONE 11/29/2017 [facility] Erythrocytes detection in urine sediment by light microscopy Erythrocytes detection in urine sediment by light microscopy NONE 0 - 5 11/29/2017 [facility] Transitional cells detection in urine sediment by light microscopy Transitional cells detection in urine sediment by light microscopy FEW NONE 11/29/2017 [facility] Breast Mammo Scrn ROSS incl CAD MA Breast Mammo Scrn ROSS incl CAD MA - BREAST MAMMO SCRN ROSS INCL CAD MA BILATERAL DIGITAL SCREENING MAMMOGRAM WITH CAD: 01/29/2017 CLINICAL: Routine. Current study was evaluated with a Computer Aided Detection (CAD) system. Comparison is made to exams dated: 05/17/2015 mammogram - [facility], 05/30/2013 mammogram, 04/26/2011 mammogram, 04/08/2010 mammogram, 04/05/2009 mammogram and 08/28/2007 mammogram - [facility] Outpatient Imaging Department. There are scattered [...] services are provided by the [facility] of Diagnostic [facility]. Pedro Luis Elder M.D. rsl/pencitlaly:01/31/2017 08:54:47 Decating Machine Operator: Stephanie Manzo RT(R)(M), [facility] This exam was dictated and interpreted by [id number] for Kanu. letter sent: Bilateral Benign Mammogram BI-RADS: 2 Benign 01/29/2017 - - Read by: Pedro Luis Elder MD Dictated Date/time: 01/31/17 08:54 Electronically Signed by: Pedro Luis Elder MD 01/31/17 08:54 FINAL REPORT BENOIT RADHA Bobby Digital Mammo Screening Ross MA Digital Mammo Screening Ross MA - DIGITAL MAMMO SCREENING ROSS MA BILATERAL DIGITAL SCREENING MAMMOGRAM WITH CAD: 05/17/2015 CLINICAL: Annual Screening. Current study was evaluated with a Computer Aided Detection (CAD) system. Comparison is made to exams dated: 04/05/2009 mammogram, 04/08/2010 mammogram, 04/26/2011 mammogram and 05/30/2013 mammogram - [facility] Outpatient Imaging Department. There are scattered [...] screening mammogram is recommended. Nico Ring M.D. srp/penrad:05/17/2015 16:35:40 Decating Machine Operator: Sherley ANDRADE(Chad)(Lenard), [facility] This exam was dictated and interpreted by [id number] for BENOIT Thomas. letter sent: Normal exam [...] Brandie Vila MD 07/25/13 08:18 FINAL REPORT BENOIT Bobby Vital Signs Vital Sign Value Date Comments Source Respitory Rate 14 06/26/2018 [facility] Systolic (mm Hg) 137 06/26/2018 [facility] Diastolic (mm Hg) 94 06/26/2018 [facility] Systolic (mm Hg) 140 06/26/2018 [facility] Diastolic (mm Hg) 71 06/26/2018 [facility] Respitory Rate 12 06/26/2018 [facility] Systolic (mm Hg) 146 06/26/2018 [facility] Diastolic (mm Hg) 66 06/26/2018 [facility] Respitory Rate 16 06/26/2018 [facility] Height 157.48 cm 06/26/2018 [facility] BMI Calculated 43.99 06/26/2018 [facility] Weight 109.091 06/26/2018 [facility] Heart Rate 66 06/26/2018 [facility] Heart Rate 61 06/17/2018 [facility] BMI Calculated 44.17 06/17/2018 [facility] Weight 109.545 06/17/2018 [facility] Height 157.48 cm 06/17/2018 [facility] Encounters Location Location Details Encounter Type Encounter Number Reason For Visit Attending Provider ADM Date DC Date Status Source OD [id number] 627.1 - POSTMENOPAUSAL DAMIR HANSON 07/24/2013 Active [facility] [place] [facility] [id number] Dain Siddiqui 11/28/2013 11/29/2013 [facility] [place] [facility] [place] [facility] [id number] Damir Hanson 05/17/2015 05/18/2015 [facility] [place] [facility] [place] [facility] [id number] Damir Hanson 01/29/2017 01/30/2017 [facility] [place] Departed Emergency Room [id number] TOÑA CATALAN MD 10/10/2017 10/10/2017 [facility] Departed Emergency Room [id number] DAYA ALEJO MD 11/29/2017 11/29/2017 [facility] [place] [facility] [id number] Damir Hanson 05/27/2018 05/28/2018 [facility] [place] [facility] [place] [facility] [id number] Damir Hanson 06/03/2018 06/04/2018 [facility] [place] [facility] [id number] Damir Hanson 06/26/2018 06/27/2018 [facility] Procedures Procedure Code Date Perfomer Comments Source Computed tomography of abdomen and pelvis with contrast [id number] [facility] and [facility] with contrast [id number] 10/10/2017 ALAYNA [facility] Appendectomy [id number] [facility] [place] Carpal tunnel release<sup>1</sup> [id number] [facility] [place] [id number] [facility] Hernia repair<sup>2</sup> [id number] twice [facility] [place] Knee arthroplasty<sup>3</sup> [id number] 2 times left leg [facility] [place] Shoulder repair [id number] [facility] Tonsillectomy [id number] [facility] Appendectomy [id number] [facility] Carpal tunnel release<sup>1</sup> [id number] [facility] Gall[facility] [id number] [facility] Hernia repair<sup>2</sup> [id number] twice [facility] Knee arthroplasty<sup>3</sup> 32673426 2 times left leg [facility] Shoulder repair [id number] [facility] Tonsillectomy [id number] [facility]
--- OUTSIDE RECORDS SUMMARY | 2019-03-20 05:52 | XMS REPORT | Summary of Care ---
Author Author [facility] [place] Organization [facility] [place] Address Unknown Phone Unavailable Encounter HQ Amandar_franco(FIN) [id number] Date(s): 06/03/18 - 06/03/18 [facility] [place] [address] [place] [address]- [phone] Encounter Diagnosis Encounter for screening mammogram for malignant neoplasm of breast (Final) - 06/04/18 Discharge Disposition: Home or Self Care Attending Physician: Vahid Hanson MD Referring Physician: Vahid Hanson MD Vital Signs No data available for this section Problem List No data available for this section Allergies, Adverse Reactions, Alerts Substance Reaction Severity Status sulfa drugs Active Dilaudid Active Reglan Active Adhesive Active valACYclovir Active Medications No data available for this section [...] No entered on: 06/26/18 Assessment and Plan No data available for this section
--- NOTE | 2019-03-20 07:05 | NUR ---
SPIRITUAL CARE - Pre-Surgery Assessment: Pt in bed. Pt's daughter at bedside. Pt reported supportive attention from family and friends. Intervention: I provided pastoral presence, hospitality, sympathetic listening, and prayer. I acquainted pt with availability of facilities officer while hospitalized. Outcome: Pt expressed appreciation for visit. No need for follow up indicated at this time. RENAY Robleslain Spiritual Care Department O: [phone] Pager: [phone] ([phone] + number calling from)
[2019-03-20 10:08] VITALS: BP 128/76
--- NOTE | 2019-03-20 14:16 | Operative Report ---
DATE OF PROCEDURE: 03/20/2019 SURGEON: Pascual Goncalves MD PREOPERATIVE DIAGNOSIS: Stenosing tenosynovitis of right thumb trigger finger. POSTOPERATIVE DIAGNOSIS: Stenosing tenosynovitis of right thumb trigger finger. OPERATION PERFORMED: Tenovaginotomy of right thumb trigger finger. ANESTHESIA: General. HISTORY: The patient is a 58-year-old right hand-dominant female who presents with stenosing tenosynovitis of the right thumb finger that is recalcitrant to conservative treatment. The risks, benefits, and alternatives of treatment were discussed with the patient and they are prepared to undergo the procedure as outlined. DESCRIPTION OF PROCEDURE: The patient was brought to the operating theater. After the induction of adequate general/regional anesthesia, the patient was prepped and draped in a supine position. A time out was performed by the entire operating room team. An oblique incision was marked out over the A1 monty of the right thumb finger. The upper extremity was exsanguinated, and a tourniquet was inflated to a pressure of 250 mmHg. The incision was made through the skin and subcutaneous tissues. All venous tributaries were controlled with bipolar cautery. The incision was deepened through the palmar tissues. The neurovascular bundles on the radial and ulnar sides of the flexor tendon sheath were identified and retracted away from the flexor tendon sheath and preserved. The A1 monty of the affected finger was identified and incised longitudinally, taking care to protect and preserve the flexor tendons within the sheath. After the complete length of the monty had been transected, the tendons were placed in a range of motion. There was noted to be good motion without any locking. The wound was then copiously irrigated with bacteriostatic saline and closed with 5-0 nylon in an interrupted horizontal mattress fashion. A Marcaine field block was performed at the operative site. The tourniquet was deflated. All the fingers pinked up nicely. A sterile bulky conforming bandage was applied to the hand, and the patient was returned to the recovery room in satisfactory condition and was discharged with a postoperative instruction sheet as well as a followup appointment. Pascual Goncalves MD ER/MODL /[id number]
== END | disposition home or self-care (01) ==
LOC: OR 05:39
PROVIDERS: ATTEND Plastic Surgery
DX: M65.311 Trigger thumb, right thumb (principal); I10 Essential (primary) hypertension; J45.909 Unspecified asthma, uncomplicated; G47.33 Obstructive sleep apnea (adult) (pediatric); K21.9 Gastro-esophageal reflux disease without esophagitis; K58.9 Irritable bowel syndrome, unspecified; F41.9 Anxiety disorder, unspecified; F32.9 Major depressive disorder, single episode, unspecified; Z88.6 Allergy status to analgesic agent; Z88.2 Allergy status to sulfonamides; Z01.810 Encounter for preprocedural cardiovascular examination; Z01.812 Encounter for preprocedural laboratory examination
CPT/HCPCS: 36415; 80048; 84132; 93005; J0690; J1100; J1885; J2001; J2250; J2270; J2405

== ENCOUNTER 2019-05-03 23:25 | Emergency (ER) | payer BC ==
[~2019-05-03] VITALS: Ht 157.5 cm; Wt 111.1 kg
[~2019-05-03 23:25] MED LIST changes: -BUPIVACAINE HCL 0.5% INJ 30 ML VIAL INJ ONE; -CEFAZOLIN SOD 1 GM/NS 50ML 50 ML IV ONE; -DEXAMETHASONE SOD PHOS INJ 4 MG/ML VIAL ONE; -FENTANYL CITRATE/PF 100MCG/2 ML INJ ONE; -GLYCOPYRROLATE INJ 1MG/ 5 ML SYR ONE; -KETOROLAC TROMETHAMINE 30 MG/ML VIAL ONE; -LIDOCAINE HCL 2% LOCAL INJ 5 ML SDV VIAL INJ ONE; -MIDAZOLAM HCL 2 MG/2 ML VIAL ONE; -MORPHINE SULFATE INJ 4 MG/ML INJ 1ML ONE; -MUPIROCIN 2% OINT 22 GM TUBE ONE; -ONDANSETRON HCL INJ 2MG/ML 2ML 2 MG/ML VIAL ONE; -PROPOFOL IV EMULSION 10 MG/ML 20 ML VIAL ONE; -SEVOFLURANE INHAL SOLN 250 ML PEN BTL ONE
--- OUTSIDE RECORDS SUMMARY | 2019-05-03 23:30 | XMS REPORT | Continuity of Care Document ---
Author Author [employer] Organization [employer] Address Unknown Phone Unavailable Care Team Providers Care Admissions Specialist Name Role Phone i[employer] Information [employer] Unavailable Unavailable Problems Problem Status Onset Date Classification Date Reported Comments Source Postmenopausal bleeding 09/06/2018 01/13/2019 [facility], [facility] [place] Encounter for screening mammogram for malignant neoplasm of breast 06/05/2018 12/21/2018 [facility] [place] N95.0 - POSTMENOPAUSAL BLEEDING Active 05/24/2018 [facility] [place] POST MENAPUASAL BLEEDING, N95.0 Active 05/24/2018 [facility] Z12.31 - ENCNTR SCREEN MAMMOGRAM FOR MA Active 01/02/2017 [facility] [place] Final: Deformity of Orbit Due to Trauma or Surgery 12/04/2013 [facility] [place] 627.1 - POSTMENOPAUSAL Active 07/23/2013 [facility] [place] Essential hypertension 01/13/2019 [facility] Gastro-esophageal reflux disease without esophagitis 01/13/2019 [facility] Obstructive sleep apnea (pediatric) 01/13/2019 [facility] Unspecified asthma, uncomplicated 01/13/2019 [facility] Pure hypercholesterolemia, unspecified 01/13/2019 [facility] Hyperlipidemia, unspecified 01/13/2019 [facility] Major depressive disorder, single episode, unspecified 01/13/2019 [facility] Anxiety disorder, unspecified 01/13/2019 [facility] Obesity, unspecified 01/13/2019 [facility] Body mass index 40.0-44.9, adult 01/13/2019 [facility] Abdominal pain Active Problem 11/30/2017 [facility] UTI Active Problem 11/30/2017 [facility] Medications Medication Details Route Status Patient Instructions Ordering Provider Order Date Source Morphine 2 mg, 0.5 mL, Route: IV, Drug form: INJ, Q10Min, Dosing Weight 109.091, kg, PRN Pain Score 6-10, Start date: 06/26/18 9:35:00 CDT, Duration: 5 doses or times, Stop date: 06/27/18 0:00:00 CDTNotes: (Same as:MORPhine Sulfate) No Longer Active 06/26/2018 [facility] Hydralazine 10 mg, 0.5 mL, Route: IV, Drug form: INJ, Q20Min, Dosing Weight 109.091, kg, Start date: 06/26/18 9:20:00 CDT, Duration: 2 doses or times, Stop date: 06/26/18 9:40:00 CDTNotes: (Same as: Apresoline) Push over 5 minutes Inactive 06/26/2018 [facility] Tramadol 50 mg, 1 tab, Route: PO, Drug form: TAB, Q4H, Dosing Weight 109.091, kg, PRN Pain Score 1-5, Start date: 06/26/18 8:52:00 CDT, Duration: 1 day, Stop date: 06/27/18 8:51:00 CDTNotes: Not to exceed 400mg/day. (Same As: Ultram) No Longer Active 06/26/2018 [facility] Oxycodone 10 mg, 2 tab, Route: PO, Drug form: TAB, Q4H, Dosing Weight 109.091, kg, PRN Pain Score 7-10, Start date: 06/26/18 8:48:00 CDT, Duration: 30 day, Stop date: 07/26/18 8:47:00 CDTNotes: (Same as: Roxic odone) No Longer Active 06/26/2018 [facility] Flumazenil 0.2 mg, 2 mL, Route: IVP, Drug form: INJ, PRN, Dosing Weight 109.091, kg, PRN Benzodiazepine Reversal, Initial dose, Start date: 06/26/18 8:48:00 CDT, Duration: 30 day, Stop date: 07/26/18 8:47:00 CD TNotes: (Same as: Romazicon) No Longer Active 06/26/2018 [facility] Naloxone 0.4 mg, 1 mL, Route: IVP, Drug form: INJ, Q2MIN, Dosing Weight 109.091, kg, PRN Narcotic Reversal, Start date: 06/26/18 8:48:00 CDT, Duration: 8 doses or times, Stop date: 06/27/18 0:00:00 CDTNotes: Same as Narcan No Longer Active 06/26/2018 [facility] Ondansetron 4 mg, 2 mL, Route: IVP, Drug form: INJ, ONCE, Dosing Weight 109.091, kg, PRN Nausea & Vomiting, Start date: 06/26/18 8:48:00 CDTNotes: (Same as: Zofran) MEDICATION WASTE Product Size: 4 mg Product Wasted: ___ mg No Longer Active 06/26/2018 [facility] Promethazine 6.25 mg, 0.25 mL, Route: IVPB, Drug form: INJ, ONCE, Dosing Weight 109.091, kg, PRN Nausea & Vomiting, Start date: 06/26/18 8:48:00 CDTNotes: Do not give IV push. (Same as: Phenergan) No Longer Active 06/26/2018 [facility] 72 HR Scopolamine 0.0139 MG/HR Transdermal Patch 1 patch, Route: TOP, Drug Form: ERFILM, Dosing Weight 109.091, kg, ONCE, Apply behind ear. Avoid use in elderly., Start date: 06/26/18 8:48:00 CDT, Stop date: 06/26/18 8:48:00 CDTNotes: Change patch every 72 hours (Same as: Transderm-Scop) No Longer Active 06/26/2018 [facility] Ketorolac 30 mg, Route: IVP, ONCE, Dosing Weight 109.091, kg, Start date: 06/26/18 8:48:00 CDT, Stop date: 06/26/18 8:48:00 CDT Inactive 06/26/2018 [facility] ondansetron (ANES) Route: IV, Drug form: INJ, ONCE, Stop date: 06/26/18 8:38:00 CDT Inactive 06/26/2018 [facility] lidocaine (ANES) Route: IV, Drug form: INJ, ONCE, Stop date: 06/26/18 8:34:00 CDT Inactive 06/26/2018 [facility] propofol (ANES) Route: IV, Drug form: INJ, ONCE, Stop date: 06/26/18 8:34:00 CDT Inactive 06/26/2018 [facility] succinylcholine (ANES) Route: IV, Drug form: INJ, ONCE, Stop date: 06/26/18 8:34:00 CDT Inactive 06/26/2018 [facility] midazolam (ANES) Route: IV, Drug form: SOLN, ONCE, Stop date: 06/26/18 8:34:00 CDT Inactive 06/26/2018 [facility] fentaNYL (ANES) Route: IV, Drug form: INJ, ONCE, Stop date: 06/26/18 8:34:00 CDT Inactive 06/26/2018 [facility] ibuprofen 600 mg oral tablet 600 mg=1 tab, PO, Q8H, # 30 tab, 0 Refill(s), Pharmacy: [facility] [id number] No Longer Active 06/26/2018 [facility] dexamethasone (ANES) Route: IV, Drug form: INJ, ONCE, Stop date: 06/26/18 8:29:00 CDT Inactive 06/26/2018 [facility] acetaminophen (ANES) 10 mg Route: IV, Drug form: INJ, Start date: 06/26/18 7:53:00 CDT, Stop date: 06/26/18 8:53:00 CDT Inactive 06/26/2018 [facility] Lactated Ringers Injection IV (ANES) 1000 mL Route: IV, Total Volume: 1,000, Start date: 06/26/18 7:31:00 CDT, Stop date: 06/26/18 8:31:00 CDT Inactive 06/26/2018 [facility] [place]-3 1000 mg oral capsule 1,000 mg=1 cap, PO, TID, 0 Refill(s) Active 06/17/2018 [facility] Multiple Vitamins oral capsule 1 cap, PO, Daily, # 30 cap, 0 Refill(s) Active 06/17/2018 [facility] Rosuvastatin calcium 10 MG Oral Tablet [Crestor] 10 mg=1 tab, PO, Bedtime, # 30 tab, 0 Refill(s) Active 06/17/2018 [facility] Hydrochlorothiazide 25 MG Oral Tablet 25 mg=1 tab, PO, Daily, # 30 tab, 0 Refill(s) Active 06/17/2018 [facility] nebivolol 10 MG Oral Tablet [Bystolic] 10 mg=1 tab, PO, Daily, # 30 tab, 0 Refill(s) Active 06/17/2018 [facility] pantoprazole 40 MG Enteric Coated Tablet [Protonix] 40 mg=1 tab, PO, Daily, # 30 tab, 0 Refill(s) Active 06/17/2018 [facility] Albuterol Sulfate (Proair Hfa Inhaler*) 8.5 Gm Inh, Active 01/12/2017 [facility] Escitalopram Oxalate (Lexapro) 10 Mg Tablet, 10 Mg Oral Daily Active 01/12/2017 [facility] Fa/Mv,Ca,Iron,Min/Lycopene/Lut (Centrum Tablet) 1 Each Tablet, 1 Tab Oral Daily Active 01/12/2017 [facility] Fexofenadine Hcl (Symone) 180 Mg Tablet, 180 Mg Oral Daily Active 01/12/2017 [facility] Hydrochlorothiazide 25 Mg Tablet, 25 Mg Oral Daily Active 01/12/2017 [facility] Hydrocodone/Ibuprofen (Reprexain 5-200 Mg Tablet) 1 Each Tablet, 1 Tab Oral Every 6 Hours as needed Active 01/12/2017 [facility] [place]-3/Dha/Epa/Fish Oil (Fish Oil 1,400 Mg Softgel) 1 Each Capsule., Active 01/12/2017 [facility] Simvastatin (Zocor) 20 Mg Tablet, 20 Mg Oral Daily Active 01/12/2017 [facility] Aspirin 81 Mg Tablet, 81 Mg Oral Daily Active 01/28/2013 [facility] Ranitidine Hcl (Zantac 75) 75 Mg Tablet, 300 Mg Oral Bedtime Active 01/28/2013 [facility] Sucralfate (Carafate) 1 Gm Tablet, 1 Gm Oral Four Times Daily Active 01/28/2013 [facility] Vitamin B Complex & Vit C No.3 (B Complex With Vitamin C) 1 Each Capsule, Active 01/28/2013 [facility] Cephalexin Monohydrate (Keflex) 500 Mg Capsule, 500 Mg Oral Three Times A Day Active 10/26/2012 [facility] Hydrochlorothiazide 25 Mg Tablet, 25 Mg Oral Daily Active 10/26/2012 [facility] Mvi , Active 10/26/2012 [facility] Dicyclomine Hcl (Bentyl) 10 Mg Capsule Four Times Daily Active [facility] Hydrochlorothiazide 25 Mg Tablet Daily Active [facility] Levothyroxine Sodium 50 Mcg Tablet Daily Active [facility] Nebivolol Hcl (Bystolic) 5 Mg Tablet Daily Active [facility] Pantoprazole Sodium (Protonix) 40 Mg Tablet.dr Daily Active [facility] Ropinirole Hcl (Requip) 5 Mg Tablet Daily Active [facility] Allergies, Adverse Reactions, Alerts Substance Category Reaction Severity Reaction type Status Date Reported Comments Source Sulfa (Sulfonamide Antibiotics) Mild Allergy to Substance Active 11/29/2017 [facility] Hydromorphone Unknown Allergy to Substance Active 11/29/2017 [facility] Metoclopramide Mild Allergy to Substance Active 11/29/2017 [facility] Valacyclovir Unknown Allergy to Substance Active 11/29/2017 [facility] sulfa drugs Assertion Drug allergy Active [facility] Dilaudid Assertion Drug allergy Active [facility] Reglan Assertion Drug allergy Active [facility] Adhesive Assertion Drug allergy Active [facility] valACYclovir Assertion Drug allergy Active [facility] Immunizations No Data Provided for This Section Results Order Name Results Value Reference Range Date Interpretation Comments Source ELECTROLYTES AGAP 13.0 10.0 - 20.0 06/17/2018 [facility] ELECTROLYTES eGFR 86 06/17/2018 Result Comment: The eGFR is calculated [...] should be multiplied by the estimated BMI. [facility] ELECTROLYTES Sodium Lvl 145 135 - 145 06/17/2018 [facility] ELECTROLYTES BUN 20 7 - 22 06/17/2018 [facility] ELECTROLYTES Creatinine Lvl 0.78 0.50 - 1.40 06/17/2018 [facility] ELECTROLYTES Potassium Lvl 4.0 3.5 - 5.1 06/17/2018 [facility] ELECTROLYTES Chloride Lvl 102 95 - 109 06/17/2018 [facility] ELECTROLYTES Glucose Lvl 80 70 - 99 06/17/2018 [facility] ELECTROLYTES CO2 34 24 - 32 06/17/2018 [facility] ELECTROLYTES Calcium Lvl 9.7 8.5 - 10.5 06/17/2018 [facility] HEMATOLOGY MCV 89.4 80.0 - 98.0 06/17/2018 [facility] HEMATOLOGY RBC 4.88 4.20 - 5.40 06/17/2018 [facility] HEMATOLOGY MPV 9.0 7.4 - 10.4 06/17/2018 [facility] HEMATOLOGY WBC 18.0 3.7 - 10.4 06/17/2018 [facility] HEMATOLOGY RDW 13.7 11.5 - 14.5 06/17/2018 [facility] HEMATOLOGY Platelet 341 133 - 450 06/17/2018 [facility] HEMATOLOGY MCHC 33.0 32.0 - 36.0 06/17/2018 [facility] HEMATOLOGY MCH 29.5 27.0 - 31.0 06/17/2018 [facility] HEMATOLOGY Hgb 14.4 12.0 - 16.0 06/17/2018 [facility] HEMATOLOGY Hct 43.6 36.0 - 48.0 06/17/2018 [facility] HEMATOLOGY Eosinophils # 0.1 0.0 - 0.5 06/17/2018 [facility] HEMATOLOGY Monocytes # 1.1 0.0 - 0.8 06/17/2018 [facility] HEMATOLOGY Lymphocytes # 4.8 1.0 - 5.5 06/17/2018 [facility] HEMATOLOGY Neutrophils # 11.9 1.5 - 8.1 06/17/2018 [facility] HEMATOLOGY Basophils 0.2 0.0 - 1.0 06/17/2018 [facility] HEMATOLOGY Segs 66.2 45.0 - 75.0 06/17/2018 [facility] HEMATOLOGY Eosinophils 0.4 0.0 - 4.0 06/17/2018 [facility] HEMATOLOGY Monocytes 6.3 2.0 - 12.0 06/17/2018 [facility] HEMATOLOGY Lymphocytes 26.9 20.0 - 40.0 06/17/2018 [facility] MEROPENEM:SUSC:PT:ISOLATE:ORDQN:ANTONINA Culture: Urine 10,000 - 50,000 CFU/mL Klebsiella pneumoniae ssp pneumoniae <10,000 CFU/mL Gram Negative Rods #2 <10,000 CFU/mL Skin Lili 06/17/2018 [facility] MEROPENEM:SUSC:PT:ISOLATE:ORDQN:ANTONINA Klebsiella pneumoniae ssp pneumoniae Klebsiella pneumoniae ssp pneumoniae 06/17/2018 [facility] URINE AND STOOL UA Urobilinogen <=1.0 mg/dL 0.1 - 1.0 06/17/2018 [facility] URINE AND STOOL UA WBC 21 0 - 5 06/17/2018 [facility] URINE AND STOOL UA Mucus Few /LPF None Seen /LPF 06/17/2018 [facility] URINE AND STOOL UA Sq Epi Few /LPF Few /LPF 06/17/2018 [facility] URINE AND STOOL UA Leuk Est Moderate *ABN* (06/17/18 10:45 AM) Negative 06/17/2018 [facility] URINE AND STOOL Micro? Performed *NA* (06/17/18 10:45 AM) 06/17/2018 [facility] URINE AND STOOL UA Nitrite Negative (06/17/18 10:45 AM) Negative 06/17/2018 [facility] URINE AND STOOL UA Bili Negative *NA* (06/17/18 10:45 AM) Negative 06/17/2018 [facility] URINE AND STOOL UA Blood Negative (06/17/18 10:45 AM) Negative 06/17/2018 [facility] URINE AND STOOL UA Glucose Negative mg/dL Negative mg/dL 06/17/2018 [facility] URINE AND STOOL UA Ketones Negative mg/dL Negative mg/dL 06/17/2018 [facility] URINE AND STOOL UA Protein Negative mg/dL Negative mg/dL 06/17/2018 [facility] URINE AND STOOL UA pH 5.5 5.0 - 8.0 06/17/2018 [facility] URINE AND STOOL UA Turbidity Clear (06/17/18 10:45 AM) Clear 06/17/2018 [facility] URINE AND STOOL UA Spec Grav 1.016 <=1.030 06/17/2018 [facility] URINE AND STOOL UA Color Yellow *NA* (06/17/18 10:45 AM) Yellow 06/17/2018 [facility] Specific gravity of Urine by Test strip Specific gravity of Urine by Test strip 1.015 1.010 - 1.025 11/29/2017 [facility] Urine clarity Urine clarity CLEAR CLEAR 11/29/2017 [facility] Urine color determination Urine color determination YELLOW YELLOW 11/29/2017 [facility] Urine erythrocytes detection Urine erythrocytes detection NEGATIVE NEGATIVE 11/29/2017 [facility] Urine glucose detection Urine glucose detection NEGATIVE NEGATIVE 11/29/2017 [facility] Urine ketones detection by automated test strip Urine ketones detection by automated test strip NEGATIVE NEGATIVE 11/29/2017 [facility] Urine leukocyte esterase detection by dipstick Urine leukocyte esterase detection by dipstick NEGATIVE NEGATIVE 11/29/2017 [facility] Urine nitrite detection Urine nitrite detection NEGATIVE NEGATIVE 11/29/2017 [facility] Urine pH measurement by automated test strip Urine pH measurement by automated test strip 5 5 - 7 11/29/2017 [facility] Urine protein measurement by test strip (mass/volume) Urine protein measurement by test strip (mass/volume) NEGATIVE NEGATIVE 11/29/2017 [facility] Urine total bilirubin measurement (mass/volume) Urine total bilirubin measurement (mass/volume) NEGATIVE NEGATIVE 11/29/2017 [facility] Urine urobilinogen measurement by test strip (mass/volume) Urine urobilinogen measurement by test strip (mass/volume) 0.2 0.2 - 1 11/29/2017 [facility] Automated blood basophil count (count/volume) Automated blood basophil count (count/volume) 0.1 0.0 - 0.1 11/29/2017 [facility] Automated blood basophil count as percentage of total leukocytes Automated blood basophil count as percentage of total leukocytes 0.6 0.0 - 1.0 11/29/2017 [facility] Automated blood eosinophil count Automated blood eosinophil count 0.3 0.0 - 0.4 11/29/2017 [facility] Automated blood eosinophil count as percentage of total leukocytes Automated blood eosinophil count as percentage of total leukocytes 2.1 0.0 - 6.0 11/29/2017 [facility] Automated blood hematocrit (volume fraction) Automated blood hematocrit (volume fraction) 40.6 34.2 - 44.1 11/29/2017 [facility] Automated blood lymphocyte count as percentage ot total leukocytes Automated blood lymphocyte count as percentage ot total leukocytes 33.8 18.0 - 39.1 11/29/2017 [facility] Automated blood monocyte count as percentage of total leukocytes Automated blood monocyte count as percentage of total leukocytes 5.7 4.4 - 11.3 11/29/2017 [facility] Automated blood neutrophil count Automated blood neutrophil count 7.1 2.1 - 6.9 11/29/2017 [facility] Automated blood platelet count (count/volume) Automated blood platelet count (count/volume) 266 140 - 360 11/29/2017 [facility] Automated blood segmented neutrophil count as percentage of total leukocytes Automated blood segmented neutrophil count as percentage of total leukocytes 57.2 38.7 - 80.0 11/29/2017 [facility] Automated erythrocyte mean corpuscular hemoglobin (mass per erythrocyte) Automated erythrocyte mean corpuscular hemoglobin (mass per erythrocyte) 29.8 28 - 32 11/29/2017 [facility] Automated erythrocyte mean corpuscular hemoglobin concentration measurement (mass/volume) Automated erythrocyte mean corpuscular hemoglobin concentration measurement (mass/volume) 33.7 31 - 35 11/29/2017 [facility] Automated erythrocyte mean corpuscular volume Automated erythrocyte mean corpuscular volume 88.5 81 - 99 11/29/2017 [facility] Blood erythrocytes automated count (number/volume) Blood erythrocytes automated count (number/volume) 4.59 3.6 - 5.1 11/29/2017 [facility] Blood hemoglobin measurement (moles/volume) Blood hemoglobin measurement (moles/volume) 13.7 12.0 - 16.0 11/29/2017 [facility] Blood leukocytes automated count (number/volume) Blood leukocytes automated count (number/volume) 12.35 4.8 - 10.8 11/29/2017 [facility] Blood lymphocytes count (number/volume) Blood lymphocytes count (number/volume) 4.2 1.0 - 3.2 11/29/2017 [facility] Blood monocytes automated count (number/volume) Blood monocytes automated count (number/volume) 0.7 0.2 - 0.8 11/29/2017 [facility] Estimated glomerular filtration rate (GFR) determination Estimated glomerular filtration rate (GFR) determination >60 60 11/29/2017 [facility] Glucose measurement Glucose measurement 109 74 - 118 11/29/2017 [facility] Plasma globulin measurement (mass/volume) Plasma globulin measurement (mass/volume) 4.0 2.3 - 3.5 11/29/2017 [facility] Serum or plasma alanine aminotransferase measurement (enzymatic activity/volume) Serum or plasma alanine aminotransferase measurement (enzymatic activity/volume) 22 0 - 55 11/29/2017 [facility] Serum or plasma albumin measurement (mass/volume) Serum or plasma albumin measurement (mass/volume) 3.9 3.5 - 5.0 11/29/2017 [facility] Serum or plasma albumin/globulin mass ratio Serum or plasma albumin/globulin mass ratio 1.0 0.8 - 2.0 11/29/2017 [facility] Serum or plasma alkaline phosphatase measurement (enzymatic activity/volume) Serum or plasma alkaline phosphatase measurement (enzymatic activity/volume) 103 40 - 150 11/29/2017 [facility] Serum or plasma amylase measurement (enzymatic activity/volume) Serum or plasma amylase measurement (enzymatic activity/volume) 27 25 - 125 11/29/2017 [facility] Serum or plasma anion gap Serum or plasma anion gap 17.3 8 - 16 11/29/2017 [facility] Serum or plasma calcium measurement (mass/volume) Serum or plasma calcium measurement (mass/volume) 9.6 8.4 - 10.2 11/29/2017 [facility] Serum or plasma carbon dioxide, total measurement (moles/volume) Serum or plasma carbon dioxide, total measurement (moles/volume) 28 22 - 29 11/29/2017 [facility] Serum or plasma chloride measurement (moles/volume) Serum or plasma chloride measurement (moles/volume) 100 98 - 107 11/29/2017 [facility] Serum or plasma creatinine measurement (mass/volume) Serum or plasma creatinine measurement (mass/volume) 0.77 0.57 - 1.11 11/29/2017 [facility] Serum or plasma lipase measurement (enzymatic activity/volume) Serum or plasma lipase measurement (enzymatic activity/volume) 13 8 - 78 11/29/2017 [facility] Serum or plasma potassium measurement (moles/volume) Serum or plasma potassium measurement (moles/volume) 3.3 3.5 - 5.1 11/29/2017 [facility] Serum or plasma protein measurement (mass/volume) Serum or plasma protein measurement (mass/volume) 7.9 6.5 - 8.1 11/29/2017 [facility] Serum or plasma sodium measurement (moles/volume) Serum or plasma sodium measurement (moles/volume) 142 136 - 145 11/29/2017 [facility] Serum or plasma total bilirubin measurement (mass/volume) Serum or plasma total bilirubin measurement (mass/volume) 0.4 0.2 - 1.2 11/29/2017 [facility] Serum or plasma urea nitrogen measurement (mass/volume) Serum or plasma urea nitrogen measurement (mass/volume) 12 7 - 26 11/29/2017 [facility] Serum or plasma urea nitrogen/creatinine mass ratio Serum or plasma urea nitrogen/creatinine mass ratio 16 6 - 25 11/29/2017 [facility] Red Cell Distribution Width 12.8 11.7 - 14.4 11/29/2017 [facility] IM GRANULOCYTES % 0.6 0.0 - 1.0 11/29/2017 [facility] Absolute Immature Granulocyte (auto 0.07 0 - 0.1 11/29/2017 [facility] Aspartate Amino Transf (AST/SGOT) 23 5 - 34 11/29/2017 [facility] Automated urine sediment leukocyte count by microscopy (number/high power field) Automated urine sediment leukocyte count by microscopy (number/high power field) <10 0 - 5 11/29/2017 [facility] Bacteria detection in urine sediment by light microscopy Bacteria detection in urine sediment by light microscopy MANY NONE 11/29/2017 [facility] Epithelial cells detection in urine sediment by light microscopy Epithelial cells detection in urine sediment by light microscopy MODERATE NONE 11/29/2017 [facility] Erythrocytes detection in urine sediment by light microscopy Erythrocytes detection in urine sediment by light microscopy NONE 0 - 5 11/29/2017 [facility] Transitional cells detection in urine sediment by light microscopy Transitional cells detection in urine sediment by light microscopy FEW NONE 11/29/2017 [facility] Pathology Reports No Data Provided for This Section Diagnostic Reports Report Value Date Source Breast Mammo Scrn ROSS incl CAD MA BILATERAL DIGITAL SCREENING MAMMOGRAM WITH CAD: 06/03/2018 CLINICAL: Routine/Screening. Current study was evaluated with a Computer Aided Detection (CAD) system. COMPARISON:Comparison is made to exams dated: 01/29/2017 mammogram, 05/17/2015 mammogram - [facility], 05/30/2013 mammogram, 04/26/2011 mammogram, 04/08/2010 mammogram, and 04/05/2009 mammogram - [facility] Out[facility]. TECHNIQUE: Mammographic views [...] is recommended.(06/04/2019) This exam was interpreted at [id number] for BENOIT Kanu, SL 15. Professional services are provided by the [facility]. Cullen Swanson M.D., cm/fredrick:06/03/2018 08:43:18 Special Education Professional(s): Stephanie Manzo, RT(R)(M), [facility] letter sent: BI-RADS 1/2 Mammogram BI-RADS: 2 Benign 06/03/2018 [facility] Pelvis w Pelvis Transvaginal US Exam: Pelvic [...] Endometrium and intrauterine cavity are unremarkable. 05/27/2018 [facility] [place] Breast Mammo Scrn ROSS incl CAD MA - BREAST MAMMO SCRN ROSS INCL CAD MA BILATERAL DIGITAL SCREENING MAMMOGRAM WITH CAD: 01/29/2017 CLINICAL: Routine. Current study was evaluated with a Computer Aided Detection (CAD) system. Comparison is made to exams dated: 05/17/2015 mammogram - [facility], 05/30/2013 mammogram, 04/26/2011 mammogram, 04/08/2010 mammogram, 04/05/2009 mammogram and 08/28/2007 mammogram - [facility] Outpatient Imaging Department. There are scattered [...] Professional services are provided by the [facility] M.[facility]. [facility] Division of Diagnostic Imaging. Pedro Luis Elder M.D. rsl/penrad:01/31/2017 08:54:47 Special Education Professional: Stephanie Manzo RT(R)(M), [facility] This exam was dictated and interpreted by [id number] for BENOIT Bobby. letter sent: Bilateral Benign Mammogram BI-RADS: 2 Benign 01/29/2017 RAD[facility] Bobby Digital Mammo Screening Ross MA - DIGITAL MAMMO SCREENING ROSS MA BILATERAL DIGITAL SCREENING MAMMOGRAM WITH CAD: 05/17/2015 CLINICAL: Annual Screening. Current study was evaluated with a Computer Aided Detection (CAD) system. Comparison is made to exams dated: 04/05/2009 mammogram, 04/08/2010 mammogram, 04/26/2011 mammogram and 05/30/2013 mammogram - [facility] Outpatient Imaging Department. There are scattered [...] screening mammogram is recommended. Nico Ring M.D. [facility]/penrad:05/17/2015 16:35:40 Special Education Professional: Sherley Ferraro RT(R)(M), [facility] This exam was dictated and interpreted by [id number] for [facility]. letter sent: Normal exam Mammogram BI-RADS: 2 Benign 05/17/2015 RADHA Bobby Orbit wo contrast CT CT orbits without [...] the right superior periorbital soft tissues. 11/28/2013 RADHA Bobby Pelvis with Pelvis Transvaginal US EXAM: Pelvis [...] ovarian cyst. Short-term followup is recommended. 07/24/2013 RADHA Bobby Consultation Notes No Data Provided for This Section Discharge Summaries No Data Provided for This Section History and Physicals No Data Provided for This Section Vital Signs Vital Sign Value Date Comments Source Respitory Rate 14 06/26/2018 [facility] Systolic (mm Hg) 137 06/26/2018 [facility] Diastolic (mm Hg) 94 06/26/2018 [facility] Systolic (mm Hg) 140 06/26/2018 [facility] Diastolic (mm Hg) 71 06/26/2018 [facility] Respitory Rate 12 06/26/2018 [facility] Systolic (mm Hg) 146 06/26/2018 [facility] Diastolic (mm Hg) 66 06/26/2018 [facility] Respitory Rate 16 06/26/2018 [facility] Height 157.48 cm 06/26/2018 [facility] BMI Calculated 43.99 06/26/2018 [facility] Weight 109.091 06/26/2018 [facility] Heart Rate 66 06/26/2018 [facility] Heart Rate 61 06/17/2018 [facility] BMI Calculated 44.17 06/17/2018 [facility] Weight 109.545 06/17/2018 [facility] Height 157.48 cm 06/17/2018 [facility] Encounters Location Location Details Encounter Type Encounter Number Reason For Visit Attending Provider ADM Date DC Date Status Source OD [id number] 627.1 - POSTMENOPAUSAL DAMIR HANSON 07/24/2013 Active [facility] [place] [facility] Out[facility] - [place] [facility] [id number] Dain Siddiqui 11/28/2013 11/29/2013 [facility] [place] [facility] Out[facility] - [place] [facility] [id number] Damir Hanson 05/17/2015 05/18/2015 [facility] [place] [facility] Outpatient Imaging - [place] [facility] [id number] Damir Hanson 01/29/2017 01/30/2017 [facility] [place] Departed Emergency Room [id number] TOÑA CATALAN MD 10/10/2017 10/10/2017 [facility] Departed Emergency Room [id number] DAYA ALEJO MD 11/29/2017 11/29/2017 [facility] Outpatient Imaging - [place] [facility] [id number] Damir Hanson 05/27/2018 05/28/2018 [facility] [place] [facility] Outpatient Imaging - [place] [facility] [id number] Damir Hanson 06/03/2018 06/04/2018 [facility] [place] [facility] Day Surgery [id number] Damir Hanson 06/26/2018 06/27/2018 [facility] Procedures Procedure Code Date Perfomer Comments Source Computed tomography of abdomen and pelvis with contrast 847708852 11/29/2017 BONNIE [facility] Computed tomography of abdomen and pelvis with contrast [id number] 10/10/2017 ALAYNA [facility] Appendectomy [id number] [facility] [place] Carpal tunnel release<sup>1</sup> 90492067 Balat [facility] [place] Gallbladder excision [id number] [facility] [place] Hernia repair<sup>2</sup> 60520593 twice [facility] [place] Knee arthroplasty<sup>3</sup> 58426634 2 times left leg [facility] [place] Shoulder repair [id number] [facility] [place] Tonsillectomy [id number] [facility] [place] Appendectomy [id number] [facility] Carpal tunnel release<sup>1</sup> 75961088 Balat [facility] Gallbladder excision [id number] [facility] Hernia repair<sup>2</sup> 06679936 twice [facility] Knee arthroplasty<sup>3</sup> 91252863 2 times left leg [facility] Shoulder repair [id number] [facility] Tonsillectomy [id number] [facility] Assessment and Plan Assessment and Plan Date Source Extracted from:Title: Pre Op History and Physical Author: Damir Hanson MD Date: 06/25/18 Department of Gynecology Preoperative History and Physical CC: "Here for surgery" HPI: Ms. Kerr is a 57 yo woman who has [...] cavity are unremarkable. Pathology: none A/P: Ms. Kerr is a 57 yo woman who has [...] and plan for OR Joy Clinton MD/MPH Teacher Adult Education PGY2 06/27/2018 [facility] Plan of Care Plan of Care Date Source Discharge Date 11/29/17 10:41pm Disposition HOME, SELF-CARE Condition at Discharge Stable Instructions/Education Provided Abdominal Pain - Adult Ovarian Cyst Urinary Tract Infection - Women Vomiting - Adult Forms Provided Work/School Excuse Prescriptions See Medication Section Additional Instructions/Education FOLLOW UP WITH YOUR DOCTOR TAKE MEDS DIRECTED DRINK PLENTY OF FLUIDS ESPECIALLY WATER 11/29/2017 [facility] Social History Social History Date Source Social History TypeResponse Smoking Status Never smoker; Exposure to Tobacco Smoke None; Cigarette Smoking Last 365 Days No; Reg Smoking Cessation Counseling No entered on: 06/26/18 06/26/2018 [facility] Social History TypeResponse Smoking Status Never smoker; Exposure to Tobacco Smoke None; Cigarette Smoking Last 365 Days No; Reg Smoking Cessation Counseling No entered on: 06/26/18 06/26/2018 [facility] Social History Problem Response Recorded Date/Time Onset Date Status Hx Psychiatric Problems No 10/25/2012 10:00pm Not Applicable Not Applicable Hx Alcohol Use No 10/25/2012 10:00pm Not Applicable Not Applicable Hx Substance Use Treatment No 10/25/2012 10:00pm Not Applicable Not Applicable Hx Physical Abuse No 10/25/2012 10:00pm Not Applicable Not Applicable Smoking Status Start Date Stop Date Never Smoker 11/29/2017 [facility] Family History No Data Provided for This Section Advance Directives Order Name Results Value Date Source Advance Directives Advance Directives Directive Response Recorded Date/Time Does the patient have an advance directive? No 10/25/12 10:00pm If yes, is advance directive on file with [facility]? No 10/25/12 10:00pm If not on file with [facility] will patient provide a copy? No 10/25/12 10:00pm Do you have a Directive to Physician? No 11/29/17 5:25pm Do you have a Medical Power of Microstrategy Architect? No 11/29/17 5:25pm Do you have an out of hospital Do Not Resuscitate Order? No 11/29/17 5:25pm Do you have any special needs we should be aware of? No 11/29/17 5:25pm Do you have a support person here with you today? Yes 11/29/17 5:25pm Did patient receive Notice of Privacy Practices? Yes 11/29/17 5:25pm Did patient receive patient rights and responsibilities? Yes 11/29/17 5:25pm 11/29/2017 [facility] Functional Status No Data Provided for This Section
[2019-05-03] MEDS ORDERED: TRAMADOL HCL 50 MG TAB PO ONE (23:45)
--- NOTE | 2019-05-04 00:58 | Diagnostic Imaging Report ---
EXAMINATION: RIBS UNILAT W/CXR INDICATION: ^LEFT RIB PAIN AFTER FALL ^[id number] ^0025 ^Y COMPARISON: 01/27/2013 FINDINGS: TUBES and LINES: None. LUNGS: Lungs are well inflated. There is no evidence of pneumonia or pulmonary edema. PLEURA: No pleural effusion or pneumothorax. HEART AND MEDIASTINUM: The cardiomediastinal silhouette is unremarkable. BONES AND SOFT TISSUES: No acute osseous lesion. Soft tissues are unremarkable. UPPER ABDOMEN: No free air under the diaphragm. IMPRESSION: No acute thoracic abnormality. No evidence of left-sided rib fracture. Signed by: Dr. Sreekanth Camacho MD on 05/04/2019 12:55 AM
--- NOTE | 2019-05-04 01:00 | Diagnostic Imaging Report ---
FOREARM LEFT 2 VIEW - 2 views HISTORY: Pain COMPARISON: None available. FINDINGS: Bones: No acute displaced fracture. Osseous alignment is within normal limits. Joints: The joint spaces are well-maintained. Soft tissues: The soft tissues appear unremarkable. IMPRESSION: No acute radiographic abnormality. Signed by: Dr. Sreekanth Camacho MD on 05/04/2019 12:56 AM
[2019-05-04 01:16] VITALS: BP 5/2
== END 2019-05-04 01:23 | disposition home or self-care (01) ==
LOC: ER 23:25
DX: S20.212A Contusion of left front wall of thorax, initial encounter (principal); S50.12XA Contusion of left forearm, initial encounter; E78.00 Pure hypercholesterolemia, unspecified; W01.0XXA Fall on same level from slipping, tripping and stumbling without subsequent striking against object, initial encounter; K21.9 Gastro-esophageal reflux disease without esophagitis; Y92.9 Unspecified place or not applicable
CPT/HCPCS: 71101; 99284

== ENCOUNTER 2020-12-06 14:28 | Observation (INO) | payer BC ==
[~2020-12-06] VITALS: Ht 157.5 cm; Wt 113.4 kg
[2020-12-06] MEDS ORDERED: SODIUM CHLORIDE 0.9% 1000ML 1,000 ML IV STA ×2 (14:47→15:05)
[2020-12-06] MEDS ORDERED: SODIUM CHLORIDE FLUSH 10 ML SYR INJ PRN ×2 (15:00→18:45)
[2020-12-06] MEDS ORDERED: SODIUM CHLORIDE 0.9% 50ML 50 ML ONE (15:15)
[2020-12-06] MEDS ORDERED: IOPAMIDOL 370 MG/ML 200 ML INFUS..BTL INJ ONE (15:16)
[2020-12-06] MEDS ORDERED: SODIUM CHLORIDE 0.9% 1000ML 1,000 ML ONE (15:18)
[2020-12-06] MEDS ORDERED: CEFTRIAXONE SOD 1 GM 50 ML IV ONE ×2 (18:45→19:14)
[2020-12-06 20:35] VITALS: BP 146/74
[2020-12-06 21:00] VITALS: BP 146/74
[2020-12-06] MEDS: SODIUM CHLORIDE 0.9% 1000ML 1,000 ML IV SCH (21:01)
[2020-12-06 23:29] VITALS: BP 146/74
[2020-12-07] VITALS (8 sets, daily range): BP systolic 113–149; BP diastolic 55–84
[2020-12-07] MEDS ORDERED: BISACODYL 5 MG TAB EC PO ONE ×2 (00:30→01:00)
[2020-12-07] MEDS: ONDANSETRON HCL INJ 2MG/ML 2ML 2 MG/ML VIAL IV PRN ×2 (00:43→06:30)
[2020-12-07] MEDS ORDERED: MORPHINE SULFATE INJ 4 MG/ML INJ 1ML IV PRN (01:00)
[2020-12-07] MEDS ORDERED: CITRATE OF MAGNESIA 300ML BOTTLE PO ONE ×2 (05:00→08:30)
[2020-12-07] MEDS: SODIUM CHLORIDE 0.9% 1000ML 1,000 ML IV SCH (05:34)
[2020-12-07 06:04] LABS: HEMATOCRIT 37.6 % (34.2-44.1); HEMOGLOBIN 12.5 g/dL (12.0-16.0)
[2020-12-07 06:30] LABS: ANION GAP 12.5 mmol/L (8-16); BLOOD UREA NITROGEN 12 mg/dL (7-26); BUN/CREATININE RATIO 17 (6-25); CALCIUM 9.1 mg/dL (8.4-10.2); CARBON DIOXIDE 27 mmol/L (22-29); CHLORIDE 107 mmol/L (98-107); EST GLOMERULAR FILTRATION RATE > 60 ML/MIN (60-); GLUCOSE 103 mg/dL (74-118); POTASSIUM 3.5 mmol/L (3.5-5.1); SODIUM 143 mmol/L (136-145)
[2020-12-07 11:24] LABS: HEMATOCRIT 40.2 % (34.2-44.1); HEMOGLOBIN 13.3 g/dL (12.0-16.0)
[2020-12-07] MEDS ORDERED: KETAMINE HCL INJ 50 MG/ML 10 ML VIAL ONE (12:27)
[2020-12-07] MEDS ORDERED: MIDAZOLAM HCL 2 MG/2 ML VIAL ONE (12:27)
[2020-12-07] MEDS ORDERED: FENTANYL CITRATE/PF 100MCG/2 ML INJ ONE (12:27)
[2020-12-07] MEDS ORDERED: PANTOPRAZOLE 40 MG 10ML VIAL ONE (18:17)
[2020-12-07] MEDS: PANTOPRAZOLE 40 MG 10ML VIAL IV SCH (18:33)
[2020-12-07 18:52] LABS: WBC,FECAL (FECAL LACTOFERRIN) NEGATIVE (NEGATIVE)
[2020-12-07 18:55] LABS: HEMATOCRIT 37.1 % (34.2-44.1); HEMOGLOBIN 12.1 g/dL (12.0-16.0)
[2020-12-07] MEDS ORDERED: PROPOFOL IV EMULSION 10 MG/ML 20 ML VIAL ONE (19:32)
[2020-12-07] MEDS ORDERED: GLUCAGON FOR INJ 1 MG VIAL ONE (19:32)
[2020-12-08] VITALS: BP 132/87
[2020-12-08] MEDS: SODIUM CHLORIDE 0.9% 1000ML 1,000 ML IV SCH ×2 (02:14→10:45)
[2020-12-08 04:00] VITALS: BP 113/49
[2020-12-08] MEDS: PANTOPRAZOLE 40 MG 10ML VIAL IV SCH (05:24)
[2020-12-08 05:38] LABS: HEMATOCRIT 35.8 % (34.2-44.1); HEMOGLOBIN 11.9 g/dL (12.0-16.0)
[2020-12-08 07:27] LABS: ANION GAP 13.5 mmol/L (8-16); BLOOD UREA NITROGEN 8 mg/dL (7-26); BUN/CREATININE RATIO 12 (6-25); CALCIUM 8.1 mg/dL (8.4-10.2); CARBON DIOXIDE 22 mmol/L (22-29); CHLORIDE 110 mmol/L (98-107); CREATININE, SERUM 0.66 mg/dL (0.57-1.11); EST GLOMERULAR FILTRATION RATE > 60 ML/MIN (60-); GLUCOSE 91 mg/dL (74-118); POTASSIUM 3.5 mmol/L (3.5-5.1); SODIUM 142 mmol/L (136-145)
[2020-12-08 07:37] VITALS: BP 125/51
[2020-12-08 07:53] LABS: BASOPHILS # (AUTO) 0.1 (0.0-0.1); BASOPHILS % 0.8 % (0.0-1.0); EOSINOPHILS # (AUTO) 0.2 (0.0-0.4); EOSINOPHILS % 2.2 % (0.0-6.0); HEMATOCRIT 36.3 % (34.2-44.1); LYMPHOCYTES # (AUTO) 3.3 (1.0-3.2); LYMPHOCYTES % 35.3 % (18.0-39.1); MEAN CORPUSCULAR HEMOGLOBIN 29.6 pg (28-32); MEAN CORPUSCULAR HGB CONC 33.1 g/dL (31-35); MEAN CORPUSCULAR VOLUME 89.4 fL (81-99); MONOCYTES # (AUTO) 0.6 (0.2-0.8); NEUTROPHILS # (AUTO) 5.1 (2.1-6.9); NEUTROPHILS % 55.2 % (38.7-80.0); PLATELET COUNT 292 x10e3/uL (140-360); RED BLOOD COUNT 4.06 x10e6/uL (3.6-5.1); RED CELL DISTRIBUTION WIDTH 12.7 % (11.7-14.4)
[2020-12-08 08:10] VITALS: BP 125/51
[2020-12-08] MEDS ORDERED: NEBIVOLOL 10 MG TAB PO SCH (09:00)
[2020-12-08] MEDS ORDERED: ESCITALOPRAM OXALATE 10 MG TAB PO SCH (09:00)
[2020-12-08] MEDS ORDERED: PANTOPRAZOLE SOD 40 MG TABEC PO SCH (09:00)
[2020-12-08] MEDS ORDERED: HYDROCHLOROTHIAZIDE 25 MG TAB PO SCH (09:00)
[2020-12-08 11:43] VITALS: BP 156/55
[2020-12-08 12:03] LABS: HEMATOCRIT 37.8 % (34.2-44.1); HEMOGLOBIN 12.6 g/dL (12.0-16.0)
[2020-12-08 15:28] LABS: C DIFFICILE TOXIN A&B AMP PROB **POSITIVE** (NEGATIVE)
[2020-12-08 16:23] VITALS: BP 156/68
[2020-12-08] MEDS ORDERED: VANCOMYCIN HCL500 MG PO (18:04)
[2020-12-10 15:13] LABS: ENDOMYSIAL ANTIBODIES, IGA Negative (Negative)
== END 2020-12-08 19:35 | disposition home or self-care (01) ==
LOC: FSED 14:46 → INTOOBSV 18:48 → ERHOLD 18:48 → MED/SURG2 20:39
PROVIDERS: ADMIT Family Medicine; ATTEND Family Medicine
DX: K51.50 Left sided colitis without complications (principal); D12.2 Benign neoplasm of ascending colon; K29.70 Gastritis, unspecified, without bleeding; K21.00 Gastro-esophageal reflux disease with esophagitis, without bleeding; K64.8 Other hemorrhoids; K76.0 Fatty (change of) liver, not elsewhere classified; G47.33 Obstructive sleep apnea (adult) (pediatric); R00.1 Bradycardia, unspecified; E03.9 Hypothyroidism, unspecified; G62.9 Polyneuropathy, unspecified; I10 Essential (primary) hypertension; E78.5 Hyperlipidemia, unspecified; R07.2 Precordial pain; K57.30 Diverticulosis of large intestine without perforation or abscess without bleeding; N39.0 Urinary tract infection, site not specified; E78.00 Pure hypercholesterolemia, unspecified; F32.9 Major depressive disorder, single episode, unspecified; Z88.6 Allergy status to analgesic agent; Z88.2 Allergy status to sulfonamides; Z88.8 Allergy status to other drugs, medicaments and biological substances; Z91.048 Other nonmedicinal substance allergy status; Z20.822 Contact with and (suspected) exposure to COVID-19
CPT/HCPCS: 36415 ×2; 43239; 43250; 43450; 45380; 74177; 80048 ×2; 80053; 80076; 82784; 83516; 83630; 83993; 85014 ×2; 85018 ×2; 85025 ×2; 85610; 85651; 86140; 86256 ×2; 86671; 87045; 87086; 87177; 87328; 87493; 88305; 88312; 99284; C9113 ×2; G0378 ×3; J0696; J1610; J2250; J2405; J2704; J3010; J7030 ×3; Q9967; S0164; U0002

== ENCOUNTER 2021-11-03 18:31 | Inpatient (IN) | payer BC ==
[~2021-11-03] VITALS: Ht 157.5 cm; Wt 108.0 kg
[~2021-11-03 18:31] MED LIST changes: +VANCOMYCIN HCL500 MG PO
[2021-11-03] MEDS ORDERED: SODIUM CHLORIDE 0.9% 50ML 50 ML ONE (19:54)
[2021-11-03] MEDS ORDERED: IOPAMIDOL 370 MG/ML 200 ML INFUS..BTL INJ ONE (19:55)
[2021-11-03] MEDS ORDERED: DICYCLOMINE HCL 20 MG TAB PO ONE (20:30)
[2021-11-03] MEDS ORDERED: ONDANSETRON HCL INJ 2MG/ML 2ML 2 MG/ML VIAL IV STA (20:30)
[2021-11-03] MEDS ORDERED: SODIUM CHLORIDE 0.9% 1000ML 1,000 ML IV SCH (20:30)
[2021-11-03] MEDS ORDERED: DICYCLOMINE HCL 10 MG CAP ONE (20:47)
[2021-11-03] MEDS ORDERED: ONDANSETRON HCL INJ 2MG/ML 2ML 2 MG/ML VIAL ONE (20:47)
[2021-11-03] MEDS ORDERED: SODIUM CHLORIDE 0.9% 1000ML 1,000 ML ONE (20:48)
[2021-11-03] MEDS ORDERED: DICYCLOMINE HCL10 MG PO (22:31)
[2021-11-03 23:53] VITALS: BP 118/56
[2021-11-04] VITALS (7 sets, daily range): BP systolic 103–131; BP diastolic 44–64
[2021-11-04] MEDS ORDERED: BYSTOLIC10 MG PO (01:02)
[2021-11-04] MEDS ORDERED: LISINOPRIL40 MG PO (01:02)
[2021-11-04] MEDS ORDERED: BREO ELLIPTA 21 EACH INH (01:02)
[2021-11-04] MEDS ORDERED: XIIDRA1 EACH OU (01:02)
[2021-11-04] MEDS ORDERED: ALBUTEROL2.5 MG/3 M INH (01:02)
[2021-11-04] MEDS ORDERED: SIMVASTATIN20 MG PO (01:02)
[2021-11-04] MEDS ORDERED: CITRATE OF MAGNESIA 300ML BOTTLE PO ONE ×2 (03:15→07:00)
[2021-11-04] MEDS ORDERED: BISACODYL 5 MG TAB EC PO ONE ×4 (04:30→08:30)
[2021-11-04 06:25] LABS: BASOPHILS % 0.1 % (0.0-1.0); HEMATOCRIT 34.5 % (34.2-44.1); HEMOGLOBIN 10.9 g/dL (12.0-16.0); LYMPHOCYTES # (AUTO) 3.5 (1.0-3.2); LYMPHOCYTES % 40.3 % (18.0-39.1); MEAN CORPUSCULAR HEMOGLOBIN 29.1 pg (28-32); MEAN CORPUSCULAR HGB CONC 31.6 g/dL (31-35); MEAN CORPUSCULAR VOLUME 92.2 fL (81-99); MONOCYTES # (AUTO) 0.8 (0.2-0.8); MONOCYTES % 8.6 % (4.4-11.3); NEUTROPHILS # (AUTO) 4.4 (2.1-6.9); NEUTROPHILS % 50.3 % (38.7-80.0); PLATELET COUNT 279 x10e3/uL (140-360); RED BLOOD COUNT 3.74 x10e6/uL (3.6-5.1)
[2021-11-04 06:53] LABS: ANION GAP 12.4 mmol/L (8-16); CALCIUM 9.1 mg/dL (8.4-10.2); CREATININE, SERUM 0.9 mg/dL (0.57-1.11); INR 1.14; POTASSIUM 3.4 mmol/L (3.5-5.1); PROTHROMBIN TIME 15.4 seconds (11.9-14.5)
[2021-11-04] MEDS ORDERED: PHYTONADIONE 10 MG/ML AMP IV ONE (08:00)
[2021-11-04] MEDS ORDERED: PHYTONADIONE 10MG/ML 20 MG in SODIUM CHLORIDE 0.9% 50ML 50 ML IV ONE (08:30)
[2021-11-04 09:16] LABS: % IRON SATURATION 25 % (15-50); IRON 62 ug/dL (50-170); TOTAL IRON BINDING CAPACITY 244 ug/dL (261-478); TRANSFERRIN 174 mg/dL (180-382)
[2021-11-04 11:50] LABS: HEMATOCRIT 36.2 % (34.2-44.1); HEMOGLOBIN 11.3 g/dL (12.0-16.0)
[2021-11-04] MEDS ORDERED: HYOSCYAMINE SULFATE 0.5 MG/ML INJ ONE (12:32)
[2021-11-04] MEDS ORDERED: GLUCAGON FOR INJ 1 MG VIAL ONE (12:32)
[2021-11-04] MEDS ORDERED: PROPOFOL IV EMULSION 10 MG/ML 20 ML VIAL ONE (12:32)
[2021-11-04] MEDS ORDERED: MIDAZOLAM HCL 2 MG/2 ML VIAL ONE (13:04)
[2021-11-04] MEDS ORDERED: SODIUM CHLORIDE 0.9% 50ML 50 ML ONE (16:14)
[2021-11-04] MEDS ORDERED: FAMOTIDINE 20 MG/2 ML VIAL IV ONE (16:14)
[2021-11-04] MEDS: SODIUM CHLORIDE 0.9% 1000ML 1,000 ML IV SCH ×3 (21:53→21:57)
[2021-11-05] VITALS (8 sets, daily range): BP systolic 106–145; BP diastolic 50–74
[2021-11-05] MEDS ORDERED: PHYTONADIONE 10 MG/ML AMP IV ONE ×2 (00:30→00:45)
[2021-11-05] MEDS ORDERED: SODIUM CHLORIDE 0.9% 50ML 50 ML ONE (01:24)
[2021-11-05] MEDS: SODIUM CHLORIDE 0.9% 1000ML 1,000 ML IV SCH (04:15)
[2021-11-05 06:11] LABS: BASOPHILS % 0.2 % (0.0-1.0); HEMATOCRIT 36.8 % (34.2-44.1); HEMOGLOBIN 11.9 g/dL (12.0-16.0); LYMPHOCYTES # (AUTO) 3.6 (1.0-3.2); LYMPHOCYTES % 35.8 % (18.0-39.1); MEAN CORPUSCULAR HEMOGLOBIN 29.6 pg (28-32); MEAN CORPUSCULAR HGB CONC 32.3 g/dL (31-35); MEAN CORPUSCULAR VOLUME 91.5 fL (81-99); MONOCYTES # (AUTO) 0.6 (0.2-0.8); MONOCYTES % 6.1 % (4.4-11.3); NEUTROPHILS # (AUTO) 5.8 (2.1-6.9); NEUTROPHILS % 57.3 % (38.7-80.0); PLATELET COUNT 346 x10e3/uL (140-360); RED BLOOD COUNT 4.02 x10e6/uL (3.6-5.1); RED CELL DISTRIBUTION WIDTH 12.9 % (11.7-14.4)
[2021-11-05 06:38] LABS: ANION GAP 14.3 mmol/L (8-16); CALCIUM 9.6 mg/dL (8.4-10.2); CREATININE, SERUM 0.82 mg/dL (0.57-1.11); POTASSIUM 3.3 mmol/L (3.5-5.1)
[2021-11-05] MEDS: CHLORDIAZEPOXIDE/CLIDINIUM 1 CAP PO SCH ×3 (07:31→17:39)
[2021-11-05] MEDS ORDERED: HYDROCORTISONE ACETATE 25 MG/SUPP.RECT SUPP RC SCH (09:00)
[2021-11-05] MEDS ORDERED: ALBUTEROL SULF 0.083% NEB SOLN 3 ML NEB INH PRN (12:00)
[2021-11-05] MEDS ORDERED: POTASSIUM CHLORIDE 20 MEQ TAB CR PO ONE (12:30)
[2021-11-05] MEDS: LISINOPRIL 20 MG TAB PO SCH (12:31)
[2021-11-05] MEDS: DICYCLOMINE HCL 10 MG CAP PO SCH ×2 (15:45→20:09)
[2021-11-05] MEDS: LIFITEGRAST OP SCH (17:00)
[2021-11-05] MEDS: HYDROCORTISONE ACETATE 25 MG/SUPP.RECT SUPP RC SCH (20:09)
[2021-11-05] MEDS ORDERED: SIMVASTATIN 20 MG TAB PO SCH (21:00)
[2021-11-06 00:12] VITALS: BP 108/62
[2021-11-06 04:00] VITALS: BP 112/47
[2021-11-06] MEDS ORDERED: PHYTONADIONE 10MG/ML 20 MG in SODIUM CHLORIDE 0.9% 50ML 50 ML IV PRN (06:00)
[2021-11-06 06:26] LABS: BASOPHILS % 0.3 % (0.0-1.0); HEMATOCRIT 34.5 % (34.2-44.1); HEMOGLOBIN 10.8 g/dL (12.0-16.0); LYMPHOCYTES # (AUTO) 3.1 (1.0-3.2); LYMPHOCYTES % 40.2 % (18.0-39.1); MEAN CORPUSCULAR HEMOGLOBIN 29.3 pg (28-32); MEAN CORPUSCULAR HGB CONC 31.3 g/dL (31-35); MEAN CORPUSCULAR VOLUME 93.8 fL (81-99); MONOCYTES # (AUTO) 0.5 (0.2-0.8); MONOCYTES % 6.7 % (4.4-11.3); NEUTROPHILS # (AUTO) 4.1 (2.1-6.9); NEUTROPHILS % 52.4 % (38.7-80.0); PLATELET COUNT 278 x10e3/uL (140-360); RED BLOOD COUNT 3.68 x10e6/uL (3.6-5.1); RED CELL DISTRIBUTION WIDTH 13.1 % (11.7-14.4)
[2021-11-06 06:37] LABS: INR 1.01
[2021-11-06 06:46] LABS: ANION GAP 10.9 mmol/L (8-16); BLOOD UREA NITROGEN < 5 mg/dL (7-26); CARBON DIOXIDE 27 mmol/L (22-29); CHLORIDE 111 mmol/L (98-107); CREATININE, SERUM 0.77 mg/dL (0.57-1.11); EST GLOMERULAR FILTRATION RATE 77 ML/MIN (60-); GLUCOSE 104 mg/dL (74-118); POTASSIUM 3.9 mmol/L (3.5-5.1); SODIUM 145 mmol/L (136-145)
[2021-11-06 06:47] LABS: BUN/CREATININE RATIO 6 (6-25)
[2021-11-06 08:04] VITALS: BP 124/54
[2021-11-06 08:17] VITALS: BP 124/54
[2021-11-06] MEDS: CHLORDIAZEPOXIDE/CLIDINIUM 1 CAP PO SCH ×2 (08:28→11:15)
[2021-11-06] MEDS: DICYCLOMINE HCL 10 MG CAP PO SCH (08:29)
[2021-11-06] MEDS: LIFITEGRAST OP SCH (08:29)
[2021-11-06] MEDS: LISINOPRIL 20 MG TAB PO SCH (08:31)
[2021-11-06] MEDS: HYDROCORTISONE ACETATE 25 MG/SUPP.RECT SUPP RC SCH (08:32)
[2021-11-06] MEDS ORDERED: PANTOPRAZOLE SOD 40 MG TABEC PO SCH (09:00)
[2021-11-06] MEDS ORDERED: NEBIVOLOL 10 MG TAB PO SCH (09:00)
[2021-11-06] MEDS ORDERED: HYDROCHLOROTHIAZIDE 25 MG TAB PO SCH (09:00)
[2021-11-06] MEDS ORDERED: LIBRAX CAPSULE1 EACH PO (09:53)
[2021-11-06] MEDS ORDERED: ANUSOL-HC25 MG RC (09:54)
[2021-11-06 11:52] VITALS: BP 136/64
== END 2021-11-06 12:48 | disposition home or self-care (01) | DRG 378 ==
LOC: FSED 19:00 → ERHOLD 22:19 → MED/SURG 23:54
PROC: 0DJD8ZZ Inspection of Lower Intestinal Tract, Via Natural or Artificial Opening Endoscopic (ICD-10-PCS; principal; 2021-11-04 13:00)
DX: K57.31 Diverticulosis of large intestine without perforation or abscess with bleeding (principal); Z68.41 Body mass index [BMI] 40.0-44.9, adult; K58.9 Irritable bowel syndrome, unspecified; I10 Essential (primary) hypertension; J45.909 Unspecified asthma, uncomplicated; E66.01 Morbid (severe) obesity due to excess calories; E78.5 Hyperlipidemia, unspecified; K64.8 Other hemorrhoids; Z20.822 Contact with and (suspected) exposure to COVID-19
CPT/HCPCS: 36415; 45378; 74177; 80048; 80053; 81003; 82607; 82746; 83540; 83735; 84466; 85014; 85018; 85025; 85045; 85610; 86850; 86900; 94799; 96361; 96374; 96376; 99284; J1610; J1980; J2250; J2405; J3430; J7030; Q9967; U0002

== ENCOUNTER 2022-06-20 07:28 | Emergency (ER) | payer BC ==
[~2022-06-20] VITALS: Ht 157.5 cm; Wt 79.8 kg
[~2022-06-20 07:28] MED LIST changes: +ALBUTEROL2.5 MG/3 M INH; +ANUSOL-HC25 MG RC; +BREO ELLIPTA 21 EACH INH; +BYSTOLIC10 MG PO; +DICYCLOMINE HCL10 MG PO; +LIBRAX CAPSULE1 EACH PO; +LISINOPRIL40 MG PO; +SIMVASTATIN20 MG PO; +XIIDRA1 EACH OU
[2022-06-20] MEDS ORDERED: CEFDINIR300 MG PO (08:23)
[2022-06-20] MEDS ORDERED: DEXAMETHASONE SOD PHOS INJ 4 MG/ML SDV IM ONE (08:30)
[2022-06-20] MEDS ORDERED: DEXAMETHASONE SOD PHOS INJ 4 MG/ML SDV ONE (08:48)
== END 2022-06-20 08:45 | disposition home or self-care (01) ==
LOC: FSED 08:09
DX: J01.90 Acute sinusitis, unspecified (principal); I10 Essential (primary) hypertension; E78.5 Hyperlipidemia, unspecified; J45.909 Unspecified asthma, uncomplicated; Z28.310 Unvaccinated for COVID-19; Z88.5 Allergy status to narcotic agent; Z88.2 Allergy status to sulfonamides; Z88.8 Allergy status to other drugs, medicaments and biological substances
CPT/HCPCS: 83518; 87400; 99282; J1100

== ENCOUNTER → 2022-08-29 | Day surgery (SDC) | payer BC ==
[2022-08-23 09:30] LABS: BASOPHILS % 0.1 % (0.0-1.0); HEMATOCRIT 40.1 % (34.2-44.1); HEMOGLOBIN 12.7 g/dL (12.0-16.0); LYMPHOCYTES # (AUTO) 3.2 (1.0-3.2); LYMPHOCYTES % 34.9 % (18.0-39.1); MEAN CORPUSCULAR HEMOGLOBIN 31.1 pg (28-32); MEAN CORPUSCULAR HGB CONC 31.7 g/dL (31-35); MEAN CORPUSCULAR VOLUME 98.3 fL (81-99); MONOCYTES # (AUTO) 0.7 (0.2-0.8); MONOCYTES % 7.6 % (4.4-11.3); NEUTROPHILS # (AUTO) 5.3 (2.1-6.9); PLATELET COUNT 300 x10e3/uL (140-360); RED BLOOD COUNT 4.08 x10e6/uL (3.6-5.1); RED CELL DISTRIBUTION WIDTH 12.4 % (11.7-14.4)
[~2022-08-29] MED LIST changes: +CEFDINIR300 MG PO; +FASENRA30 MG/1 ML INJ; +LIDOCAINE HCL 2% LOCAL INJ 5 ML SDV VIAL INJ ONE; +MIDAZOLAM HCL 2 MG/2 ML VIAL ONE; +PROPOFOL IV EMULSION 10 MG/ML 20 ML VIAL ONE; +ZYRTEC10 M3
[2022-08-29 13:45] VITALS: BP 113/63
== END | disposition home or self-care (01) ==
LOC: ENDO 11:05
PROVIDERS: ATTEND Internal Medicine Gastroenterology
DX: K20.90 Esophagitis, unspecified without bleeding (principal); K31.7 Polyp of stomach and duodenum; K29.70 Gastritis, unspecified, without bleeding; K29.80 Duodenitis without bleeding; K26.9 Duodenal ulcer, unspecified as acute or chronic, without hemorrhage or perforation; K44.9 Diaphragmatic hernia without obstruction or gangrene; Z86.010 Personal history of colon polyps; Z71.3 Dietary counseling and surveillance; I10 Essential (primary) hypertension; J45.909 Unspecified asthma, uncomplicated; E03.9 Hypothyroidism, unspecified; Z88.6 Allergy status to analgesic agent; Z88.1 Allergy status to other antibiotic agents; Z88.8 Allergy status to other drugs, medicaments and biological substances; Z91.048 Other nonmedicinal substance allergy status; Z01.810 Encounter for preprocedural cardiovascular examination; Z01.812 Encounter for preprocedural laboratory examination; Z79.899 Other long term (current) drug therapy; Z68.30 Body mass index [BMI] 30.0-30.9, adult
CPT/HCPCS: 36415; 43239; 43450; 85025; 93005; C9113; J2001; J2250; J2704

== ENCOUNTER 2022-11-23 12:08 | Inpatient (IN) | payer BC ==
[~2022-11-23] VITALS: Ht 157.5 cm; Wt 66.3 kg
[~2022-11-23 12:08] MED LIST changes: -LIDOCAINE HCL 2% LOCAL INJ 5 ML SDV VIAL INJ ONE; -MIDAZOLAM HCL 2 MG/2 ML VIAL ONE; -PROPOFOL IV EMULSION 10 MG/ML 20 ML VIAL ONE
[2022-11-23] MEDS: Morphine 4mg INJECTION 4 MG/ML INJ IV PRN ×2 (12:35→19:06)
[2022-11-23] MEDS: ONDANSETRON HCL INJ 2MG/ML 2ML 2 MG/ML VIAL IV PRN ×2 (12:35→19:06)
[2022-11-23] MEDS ORDERED: ONDANSETRON HCL INJ 2MG/ML 2ML 2 MG/ML VIAL IV STA (12:45)
[2022-11-23] MEDS ORDERED: ONDANSETRON HCL INJ 2MG/ML 2ML 2 MG/ML VIAL ONE ×2 (12:45→15:14)
[2022-11-23] MEDS ORDERED: Morphine 4mg INJECTION 4 MG/ML INJ IV ONE (12:45)
[2022-11-23] MEDS ORDERED: SODIUM CHLORIDE 0.9% 1000ML 1,000 ML ONE ×2 (12:45→15:14)
[2022-11-23] MEDS ORDERED: VITAMIN D3125 MCG (12:46)
[2022-11-23] MEDS ORDERED: CEFTRIAXONE 1 GM VIAL ONE (14:23)
[2022-11-23] MEDS: SODIUM CHLORIDE 0.9% 1000ML 1,000 ML IV SCH ×2 (15:11→21:33)
[2022-11-23] MEDS ORDERED: Morphine 4mg INJECTION 4 MG/ML INJ ONE (15:14)
[2022-11-23 16:18] VITALS: BP 139/61
[2022-11-23 16:24] VITALS: BP 139/61
[2022-11-23 20:00] VITALS: BP 129/58
[2022-11-23 22:20] VITALS: BP 129/58
[2022-11-24 01:59] VITALS: BP 119/64
[2022-11-24] MEDS: ONDANSETRON HCL INJ 2MG/ML 2ML 2 MG/ML VIAL IV PRN ×4 (04:24→17:09)
[2022-11-24] MEDS: Morphine 4mg INJECTION 4 MG/ML INJ IV PRN ×4 (04:24→17:10)
[2022-11-24 05:33] VITALS: BP 119/58
[2022-11-24] MEDS: SODIUM CHLORIDE 0.9% 1000ML 1,000 ML IV SCH ×3 (05:59→21:33)
[2022-11-24 07:30] LABS: BASOPHILS % 0.1 % (0.0-1.0); HEMATOCRIT 33.3 % (34.2-44.1); HEMOGLOBIN 11.4 g/dL (12.0-16.0); LYMPHOCYTES # (AUTO) 3.3 (1.0-3.2); LYMPHOCYTES % 32.8 % (18.0-39.1); MEAN CORPUSCULAR HEMOGLOBIN 31.1 pg (28-32); MEAN CORPUSCULAR HGB CONC 34.2 g/dL (31-35); MEAN CORPUSCULAR VOLUME 90.7 fL (81-99); MONOCYTES # (AUTO) 0.8 (0.2-0.8); MONOCYTES % 8.3 % (4.4-11.3); NEUTROPHILS # (AUTO) 5.9 (2.1-6.9); NEUTROPHILS % 58.6 % (38.7-80.0); PLATELET COUNT 258 x10e3/uL (140-360); RED BLOOD COUNT 3.67 x10e6/uL (3.6-5.1); RED CELL DISTRIBUTION WIDTH 12.4 % (11.7-14.4)
[2022-11-24 07:43] LABS: ALBUMIN 3.1 g/dL (3.5-5.0); ALBUMIN/GLOBULIN RATIO 1.2 (0.8-2.0); ANION GAP 9.6 mmol/L (8-16); CALCIUM 8.6 mg/dL (8.4-10.2); CREATININE, SERUM 0.79 mg/dL (0.57-1.11); POTASSIUM 3.6 mmol/L (3.5-5.1)
[2022-11-24 07:58] VITALS: BP 112/52
[2022-11-24 11:33] VITALS: BP 112/57
[2022-11-24 16:05] VITALS: BP 108/54
[2022-11-24 20:00] VITALS: BP 117/53
[2022-11-25] VITALS (7 sets, daily range): BP systolic 112–139; BP diastolic 47–64
[2022-11-25] MEDS: ONDANSETRON HCL INJ 2MG/ML 2ML 2 MG/ML VIAL IV PRN ×3 (00:04→21:44)
[2022-11-25] MEDS: Morphine 4mg INJECTION 4 MG/ML INJ IV PRN ×3 (00:06→21:44)
[2022-11-25] MEDS: SODIUM CHLORIDE 0.9% 1000ML 1,000 ML IV SCH ×3 (05:42→21:44)
[2022-11-25 08:15] LABS: CALCIUM 8.6 mg/dL (8.4-10.2); CREATININE, SERUM 0.64 mg/dL (0.57-1.11)
[2022-11-26] VITALS (7 sets, daily range): BP systolic 116–144; BP diastolic 54–86
[2022-11-26] MEDS: SODIUM CHLORIDE 0.9% 1000ML 1,000 ML IV SCH ×2 (05:58→15:35)
[2022-11-26 06:40] LABS: BASOPHILS % 0.3 % (0.0-1.0); HEMOGLOBIN 10.6 g/dL (12.0-16.0); LYMPHOCYTES # (AUTO) 2.9 (1.0-3.2); LYMPHOCYTES % 38.9 % (18.0-39.1); MEAN CORPUSCULAR HEMOGLOBIN 30.8 pg (28-32); MEAN CORPUSCULAR HGB CONC 33.1 g/dL (31-35); MONOCYTES # (AUTO) 0.6 (0.2-0.8); MONOCYTES % 7.8 % (4.4-11.3); NEUTROPHILS % 52.6 % (38.7-80.0); PLATELET COUNT 240 x10e3/uL (140-360); RED BLOOD COUNT 3.44 x10e6/uL (3.6-5.1)
[2022-11-26 07:05] LABS: ANION GAP 9.7 mmol/L (8-16); CALCIUM 8.5 mg/dL (8.4-10.2); CREATININE, SERUM 0.65 mg/dL (0.57-1.11); POTASSIUM 3.7 mmol/L (3.5-5.1)
[2022-11-26] MEDS ORDERED: BISACODYL 10 MG SUPP PR ONE (11:00)
[2022-11-26] MEDS: Morphine 4mg INJECTION 4 MG/ML INJ IV PRN (11:15)
[2022-11-26] MEDS: ONDANSETRON HCL INJ 2MG/ML 2ML 2 MG/ML VIAL IV PRN (11:16)
[2022-11-27] VITALS (7 sets, daily range): BP systolic 128–160; BP diastolic 56–72
[2022-11-27] MEDS: Morphine 4mg INJECTION 4 MG/ML INJ IV PRN ×2 (00:32→19:45)
[2022-11-27] MEDS: SODIUM CHLORIDE 0.9% 1000ML 1,000 ML IV SCH ×4 (00:35→19:49)
[2022-11-27 06:23] LABS: BASOPHILS % 0.1 % (0.0-1.0); HEMATOCRIT 28.9 % (34.2-44.1); HEMOGLOBIN 10.1 g/dL (12.0-16.0); LYMPHOCYTES # (AUTO) 3.1 (1.0-3.2); LYMPHOCYTES % 45.8 % (18.0-39.1); MEAN CORPUSCULAR HEMOGLOBIN 33.3 pg (28-32); MEAN CORPUSCULAR HGB CONC 34.9 g/dL (31-35); MEAN CORPUSCULAR VOLUME 95.4 fL (81-99); MONOCYTES # (AUTO) 0.5 (0.2-0.8); MONOCYTES % 6.9 % (4.4-11.3); NEUTROPHILS # (AUTO) 3.2 (2.1-6.9); NEUTROPHILS % 46.9 % (38.7-80.0); PLATELET COUNT 189 x10e3/uL (140-360); RED BLOOD COUNT 3.03 x10e6/uL (3.6-5.1); RED CELL DISTRIBUTION WIDTH 12.5 % (11.7-14.4)
[2022-11-27 06:37] LABS: ANION GAP 12.2 mmol/L (8-16); CALCIUM 8.5 mg/dL (8.4-10.2); CREATININE, SERUM 0.6 mg/dL (0.57-1.11); POTASSIUM 3.2 mmol/L (3.5-5.1)
[2022-11-27] MEDS ORDERED: POTASSIUM CHLORIDE 10MEQ/100ML 100 ML IV ONE (19:00)
[2022-11-27] MEDS: ONDANSETRON HCL INJ 2MG/ML 2ML 2 MG/ML VIAL IV PRN (19:48)
[2022-11-28] VITALS: BP 140/62
[2022-11-28 04:00] VITALS: BP 140/64
[2022-11-28] MEDS: ONDANSETRON HCL INJ 2MG/ML 2ML 2 MG/ML VIAL IV PRN ×4 (04:33→20:58)
[2022-11-28] MEDS: Morphine 4mg INJECTION 4 MG/ML INJ IV PRN ×4 (04:34→20:55)
[2022-11-28 06:12] LABS: BASOPHILS % 0.1 % (0.0-1.0); HEMATOCRIT 30.3 % (34.2-44.1); HEMOGLOBIN 10.9 g/dL (12.0-16.0); LYMPHOCYTES # (AUTO) 2.3 (1.0-3.2); LYMPHOCYTES % 32.7 % (18.0-39.1); MEAN CORPUSCULAR VOLUME 94.4 fL (81-99); MONOCYTES # (AUTO) 0.6 (0.2-0.8); NEUTROPHILS # (AUTO) 4.1 (2.1-6.9); NEUTROPHILS % 57.9 % (38.7-80.0); PLATELET COUNT 189 x10e3/uL (140-360); RED BLOOD COUNT 3.21 x10e6/uL (3.6-5.1); RED CELL DISTRIBUTION WIDTH 12.4 % (11.7-14.4)
[2022-11-28 06:33] LABS: ANION GAP 10.4 mmol/L (8-16); BLOOD UREA NITROGEN < 5 mg/dL (7-26); CALCIUM 8.7 mg/dL (8.4-10.2); CARBON DIOXIDE 29 mmol/L (22-29); CHLORIDE 107 mmol/L (98-107); CREATININE, SERUM 0.58 mg/dL (0.57-1.11); GLUCOSE 99 mg/dL (74-118); MAGNESIUM 1.5 MG/DL (1.3-2.1); POTASSIUM 3.4 mmol/L (3.5-5.1); SODIUM 143 mmol/L (136-145)
[2022-11-28 06:35] LABS: BUN/CREATININE RATIO 9 (6-25)
[2022-11-28 08:00] VITALS: BP 136/65
[2022-11-28] MEDS ORDERED: MAGNESIUM SULF 1GRAM/DEXTROSE 100 ML IV ONE (08:30)
[2022-11-28] MEDS ORDERED: MAGNESIUM SULFATE 2GM/50ML 50 ML IV ONE (09:30)
[2022-11-28 12:03] VITALS: BP 140/68
[2022-11-28] MEDS: SODIUM CHLORIDE 0.9% 1000ML 1,000 ML IV SCH (13:18)
[2022-11-28 15:53] VITALS: BP 139/68
[2022-11-28] MEDS: HYDROCODONE/APAP 7.5MG-325MG 1 EA TAB PO PRN (19:45)
[2022-11-28 20:00] VITALS: BP 141/68
[2022-11-29] VITALS (7 sets, daily range): BP systolic 123–146; BP diastolic 59–76
[2022-11-29] MEDS: SODIUM CHLORIDE 0.9% 1000ML 1,000 ML IV SCH ×2 (01:30→16:40)
[2022-11-29] MEDS: Morphine 4mg INJECTION 4 MG/ML INJ IV PRN (01:33)
[2022-11-29] MEDS: HYDROCODONE/APAP 7.5MG-325MG 1 EA TAB PO PRN ×4 (03:26→22:42)
[2022-11-29 07:07] LABS: ANION GAP 10.6 mmol/L (8-16); BLOOD UREA NITROGEN < 5 mg/dL (7-26); CALCIUM 8.5 mg/dL (8.4-10.2); CARBON DIOXIDE 31 mmol/L (22-29); CHLORIDE 106 mmol/L (98-107); CREATININE, SERUM 0.61 mg/dL (0.57-1.11); GLUCOSE 115 mg/dL (74-118); MAGNESIUM 1.9 MG/DL (1.3-2.1); PHOSPHORUS 3.3 MG/DL (2.3-4.7); POTASSIUM 3.6 mmol/L (3.5-5.1); SODIUM 144 mmol/L (136-145)
[2022-11-29 07:11] LABS: BUN/CREATININE RATIO 8 (6-25)
[2022-11-29] MEDS ORDERED: NON-FORMULARY MEDICATION (Fluticasone/Vilanterol (Breo Ellipta 200-25 Mcg INH) 1 INH) INH PRN (10:00)
[2022-11-29] MEDS ORDERED: ALBUTEROL SULF 0.083% NEB SOLN 3 ML NEB INH PRN (10:00)
[2022-11-29] MEDS ORDERED: BISACODYL 10 MG SUPP PR PRN (17:45)
[2022-11-29] MEDS ORDERED: BISACODYL 10 MG SUPP PR ONE (18:00)
[2022-11-30] VITALS (7 sets, daily range): BP systolic 118–135; BP diastolic 52–89
[2022-11-30] MEDS: HYDROCODONE/APAP 7.5MG-325MG 1 EA TAB PO PRN ×3 (06:20→18:45)
[2022-11-30] MEDS: HYDROCHLOROTHIAZIDE 25 MG TAB PO SCH (09:39)
[2022-11-30] MEDS: PANTOPRAZOLE SOD 40 MG TABEC PO SCH (09:40)
[2022-11-30] MEDS: LORATADINE 10 MG TAB PO SCH (09:40)
[2022-11-30] MEDS: LISINOPRIL 20 MG TAB PO SCH (09:40)
[2022-11-30] MEDS: NEBIVOLOL 10 MG TAB PO SCH (09:40)
[2022-11-30] MEDS: CHOLECALCIFEROL 400 UNIT TAB PO SCH (09:40)
[2022-12-01] MEDS: HYDROCODONE/APAP 7.5MG-325MG 1 EA TAB PO PRN ×4 (01:20→21:09)
[2022-12-01 07:45] VITALS: BP 129/53
[2022-12-01 07:51] VITALS: BP 129/53
[2022-12-01] MEDS: PANTOPRAZOLE SOD 40 MG TABEC PO SCH (09:12)
[2022-12-01] MEDS: CHOLECALCIFEROL 400 UNIT TAB PO SCH (09:12)
[2022-12-01] MEDS: HYDROCHLOROTHIAZIDE 25 MG TAB PO SCH (09:13)
[2022-12-01] MEDS: LISINOPRIL 20 MG TAB PO SCH (09:13)
[2022-12-01] MEDS: LORATADINE 10 MG TAB PO SCH (09:13)
[2022-12-01] MEDS: NEBIVOLOL 10 MG TAB PO SCH (09:14)
[2022-12-01 10:57] VITALS: BP 128/64
[2022-12-01] MEDS: METHYLPREDNISOLONE SOD SUCC 125 MG/2ML VIAL IV SCH (12:59)
[2022-12-01 15:44] VITALS: BP 121/48
[2022-12-01 20:00] VITALS: BP 126/58
[2022-12-01 22:06] VITALS: BP 126/58
[2022-12-02] VITALS (8 sets, daily range): BP systolic 118–144; BP diastolic 55–98
[2022-12-02] MEDS: HYDROCODONE/APAP 7.5MG-325MG 1 EA TAB PO PRN ×5 (03:34→23:23)
[2022-12-02] MEDS: METHYLPREDNISOLONE SOD SUCC 125 MG/2ML VIAL IV SCH (09:06)
[2022-12-02] MEDS: HYDROCHLOROTHIAZIDE 25 MG TAB PO SCH (09:07)
[2022-12-02] MEDS: PANTOPRAZOLE SOD 40 MG TABEC PO SCH (09:07)
[2022-12-02] MEDS: NEBIVOLOL 10 MG TAB PO SCH (09:07)
[2022-12-02] MEDS: CHOLECALCIFEROL 400 UNIT TAB PO SCH (09:07)
[2022-12-02] MEDS: LORATADINE 10 MG TAB PO SCH (09:09)
[2022-12-02] MEDS: LISINOPRIL 20 MG TAB PO SCH (09:09)
[2022-12-02] MEDS ORDERED: SODIUM CHLORIDE 0.9% 250ML 250 ML ONE (09:39)
[2022-12-02 13:08] LABS: BASOPHILS % 0.2 % (0.0-1.0); HEMOGLOBIN 11.8 g/dL (12.0-16.0); LYMPHOCYTES # (AUTO) 1.4 (1.0-3.2); LYMPHOCYTES % 11.7 % (18.0-39.1); MEAN CORPUSCULAR HEMOGLOBIN 30.2 pg (28-32); MEAN CORPUSCULAR HGB CONC 32.8 g/dL (31-35); MEAN CORPUSCULAR VOLUME 92.1 fL (81-99); MONOCYTES # (AUTO) 0.3 (0.2-0.8); MONOCYTES % 2.1 % (4.4-11.3); NEUTROPHILS % 85.7 % (38.7-80.0); PLATELET COUNT 352 x10e3/uL (140-360); RED BLOOD COUNT 3.91 x10e6/uL (3.6-5.1)
[2022-12-02 13:29] LABS: ALBUMIN/GLOBULIN RATIO 0.8 (0.8-2.0); ANION GAP 12.6 mmol/L (8-16); CREATININE, SERUM 0.71 mg/dL (0.57-1.11); POTASSIUM 3.6 mmol/L (3.5-5.1)
[2022-12-02 13:51] LABS: ERYTHROCYTE SEDIMENTATION RATE 80 mm/hr (0-20)
[2022-12-02] MEDS: INDOMETHACIN 25 MG CAP PO SCH ×2 (16:19→20:22)
[2022-12-02] MEDS: ONDANSETRON HCL INJ 2MG/ML 2ML 2 MG/ML VIAL IV PRN (20:36)
[2022-12-03] VITALS (8 sets, daily range): BP systolic 124–141; BP diastolic 50–69
[2022-12-03] MEDS: METHYLPREDNISOLONE SOD SUCC 125 MG/2ML VIAL IV SCH (08:11)
[2022-12-03] MEDS: CHOLECALCIFEROL 400 UNIT TAB PO SCH (08:11)
[2022-12-03] MEDS: ONDANSETRON HCL INJ 2MG/ML 2ML 2 MG/ML VIAL IV PRN (08:11)
[2022-12-03] MEDS: HYDROCHLOROTHIAZIDE 25 MG TAB PO SCH (08:11)
[2022-12-03] MEDS: LORATADINE 10 MG TAB PO SCH (08:12)
[2022-12-03] MEDS: LISINOPRIL 20 MG TAB PO SCH (08:12)
[2022-12-03] MEDS: PANTOPRAZOLE SOD 40 MG TABEC PO SCH (08:12)
[2022-12-03] MEDS: INDOMETHACIN 25 MG CAP PO SCH (08:12)
[2022-12-03] MEDS: HYDROCODONE/APAP 7.5MG-325MG 1 EA TAB PO PRN ×4 (08:13→21:30)
[2022-12-03] MEDS: NEBIVOLOL 10 MG TAB PO SCH (08:13)
[2022-12-03] MEDS ORDERED: FAMOTIDINE 20 MG TAB PO ONE (11:30)
[2022-12-04] MEDS: PANTOPRAZOLE SOD 40 MG TABEC PO SCH ×2 (03:10→10:01)
[2022-12-04] MEDS: HYDROCODONE/APAP 7.5MG-325MG 1 EA TAB PO PRN (03:15)
[2022-12-04 04:00] VITALS: BP 138/64
[2022-12-04 08:00] VITALS: BP 146/68
[2022-12-04 08:15] VITALS: BP 146/68
[2022-12-04] MEDS: LISINOPRIL 20 MG TAB PO SCH (10:00)
[2022-12-04] MEDS: METHYLPREDNISOLONE SOD SUCC 125 MG/2ML VIAL IV SCH (10:01)
[2022-12-04] MEDS: NEBIVOLOL 10 MG TAB PO SCH (10:01)
[2022-12-04] MEDS: CHOLECALCIFEROL 400 UNIT TAB PO SCH (10:02)
[2022-12-04] MEDS: LORATADINE 10 MG TAB PO SCH (10:02)
[2022-12-04] MEDS: HYDROCHLOROTHIAZIDE 25 MG TAB PO SCH (10:02)
[2022-12-04 11:41] VITALS: BP 134/51
[2022-12-04 16:16] VITALS: BP 129/61
== END 2022-12-04 17:45 | disposition home or self-care (01) | DRG 390 ==
LOC: FSED 12:13 → ERHOLD 14:03 → MED/SURG2 15:43
PROVIDERS: ADMIT Internal Medicine; ATTEND Internal Medicine
DX: K56.50 Intestinal adhesions [bands], unspecified as to partial versus complete obstruction (principal); I10 Essential (primary) hypertension; Z20.822 Contact with and (suspected) exposure to COVID-19; Z90.49 Acquired absence of other specified parts of digestive tract; Z88.1 Allergy status to other antibiotic agents; Z88.2 Allergy status to sulfonamides; Z88.8 Allergy status to other drugs, medicaments and biological substances; M10.9 Gout, unspecified; K21.9 Gastro-esophageal reflux disease without esophagitis; E87.6 Hypokalemia; E83.42 Hypomagnesemia; S99.812A Other specified injuries of left ankle, initial encounter; X50.1XXA Overexertion from prolonged static or awkward postures, initial encounter
CPT/HCPCS: 36415; 74018; 74176; 80048; 80053; 80076; 81003; 83735; 84100; 84484; 84550; 85025; 85651; 86140; 93005; 94799; 96361; 96374; 96375; 96376; 99252; 99284; J0696; J2270; J2405; J2930; J3475; J3480; J7030; J7050

== ENCOUNTER → 2024-02-06 | Outpatient (REF) | payer BC ==
[~2024-02-06] MED LIST changes: +VITAMIN D3125 MCG
== END ==
LOC: RAD 09:37
PROVIDERS: ATTEND Internal Medicine Critical Care Medicine
DX: R76.12 Nonspecific reaction to cell mediated immunity measurement of gamma interferon antigen response without active tuberculosis (principal)
CPT/HCPCS: 71046

== ENCOUNTER 2024-08-15 08:10 | Emergency (ER) | payer BC ==
[~2024-08-15] VITALS: Ht 157.5 cm; Wt 81.6 kg
[2024-08-15] MEDS ORDERED: NASACORT16.9 ML (09:20)
[2024-08-15] MEDS ORDERED: PREDNISONE20 MG PO (09:20)
[2024-08-15] MEDS ORDERED: AZITHROMYCIN250 MG PO (09:20)
[2024-08-15] MEDS: DEXAMETHASONE SOD PHOS INJ 4 MG/ML SDV IM ONE (09:38)
[2024-08-15 09:42] VITALS: PULSE 85; RESP 18; TEMP 97.5; O2SAT 97
== END 2024-08-15 09:42 | disposition home or self-care (01) ==
LOC: FSED 08:23
DX: R05.9 Cough, unspecified (principal); J40 Bronchitis, not specified as acute or chronic; J06.9 Acute upper respiratory infection, unspecified; J30.9 Allergic rhinitis, unspecified; Z11.52 Encounter for screening for COVID-19
CPT/HCPCS: 0223U; 71046; 87400; 96372; 99283; J1100